=== PATIENT | male | born 1955 | race Caucasian/White ===

== ENCOUNTER → 2024-07-19 07:45 | Outpatient (REF) | payer MEDICARE, SELFPAY | LOC: DHVS 07:45 | PROVIDERS: ATTENDING PHYSICIAN Surgery Vascular Surgery; FAMILY PHYSICIAN Nurse Practitioner Family; REFERRING PHYSICIAN Internal Medicine Cardiovascular Disease | DX: I71.43 Infrarenal abdominal aortic aneurysm, without rupture (principal) | CPT/HCPCS: 76770 ==

== ENCOUNTER 2025-05-27 11:42 | Inpatient (IN) | payer MEDICARE, SELFPAY ==
[2025-05-27] VITALS (16 sets, daily range): BP systolic 89–137; BP diastolic 43–80; BMI 37.7; BMI 38.5
--- NOTE | 2025-05-27 09:02 | ED.GENMED ---
History of Present Illness
General
Chief Complaint: Abdominal Symptoms
Time Seen by Provider: 05/27/25 09:02
History of Present Illness
History of Present Illness:
FOCUSED PAST MEDICAL HISTORY
- COPD, A-fib, high blood pressure, diverticular disease, IDDM
Note:
CHIEF COMPLAINT(S)
The patient presents with recurrent episodes of nausea, diarrhea and generalized weakness.
HISTORY OF PRESENT ILLNESS
The patient is a 69-year-old male who presented with a history of violent, watery diarrhea starting Wednesday night. He reported transient improvement on Wednesday, but symptoms recurred on night, prompting him to visit an ER in [place] on
Wednesday. A computed tomography scan of the abdomen and pelvis with IV contrast was performed, which revealed no acute findings but noted gallstones, diverticulosis, a gastric lipoma, and an enlarged prostate. No lymphadenopathy was observed.
Yesterday, the patient experienced diarrhea every hour and a half and reports feeling dehydrated and weak. He noted a lack of urination yesterday and has a history of low potassium, commonly addressed with potassium supplementation during previous
hospitalizations. The patient describes abdominal tenderness in the left quadrant and reports a burning sensation on the right side extending to his throat. Additionally, he is experiencing nausea. He also reported a burning sensation in the right
side of his torso.
PAST MEDICAL AND SURIGICAL HISTORY
Documented diverticulosis and [id number] bypass graft surgery.
ADDITIONAL HISTORY OBTAINED FROM SOURCES OTHER THAN THE PATIENT
According to prior ER records, a computed tomography scan of the abdomen and pelvis with IV contrast showed no acute issues, but chronic conditions like cholelithiasis and diverticulosis were noted. External records indicate a history of being
prescribed potassium due to loss associated with diarrhea and previous hospitalizations.
EXTERNAL RECORDS REVIEWED
The CT scan from [place] ER showed no acute findings but mentioned gallstones, diverticulosis, and an enlarged prostate. Prior laboratory tests included a white blood cell count of 6.4, hemoglobin at 11.9, and potassium level at 3.3, indicating
mild dehydration.
CHRONIC MEDICAL CONDITIONS SIGNIFICANTLY AFFECTING CARE
The patient has a history of diverticulosis and previous [id number] bypass graft.
SOCIAL DETERMINANTS AFFECTING HEALTH
No social determinants affecting health were specifically discussed in detail during the case history.
PHYSICAL EXAM
General: Alert, no acute distress. Appears somewhat weak and debilitated.
Skin: Warm, dry.
Head: Normocephalic, atraumatic.
Neck: Supple, trachea midline.
Eye Ears, Nose, Mouth, and Throat: Oral mucosa somewhat dry.
Cardiovascular: Normal peripheral perfusion, no edema.
Respiratory: Respirations are non-labored.
Gastrointestinal: Some very minimal left-sided abdominal tenderness
Back: Normal range of motion, normal alignment.
Musculoskeletal: Normal range of motion, normal strength.
Neurological: Alert and oriented to person, place, time, and situation, no focal neurological deficit observed.
Psychiatric: Cooperative, appropriate mood & affect.
PLAN
- Administer intravenous fluids to address dehydration.
- Repeat blood work to check current potassium levels and renal function.
- Provide potassium supplementation if levels remain low.
- Administer Pepcid (histamine kira) to manage burning sensation and nausea.
- Monitor and reassess after interventions to determine if further imaging or interventions are necessary.
DIFFERENTIAL DIAGNOSIS
The Differential Diagnosis includes, in no particular order and is not limited to:
1. Infectious gastroenteritis
2. Clostridium difficile infection
3. Diverticulitis
4. Irritable bowel syndrome
5. Medication-induced diarrhea
6. Inflammatory bowel disease
7. Hyperthyroidism
8. Pancreatic insufficiency
9. Lactose intolerance
10. Functional dyspepsia
EKG
- A-fib 82, left axis deviation, nonspecific ST abnormality
LABS
- White count 10.9, hemoglobin normal, potassium 3.1, bicarb 12, creatinine 2.4, magnesium normal
UPDATE
-SUMMARY OF ENCOUNTER
The patient, a 69-year-old male, presented with recurrent violent watery diarrhea and generalized weakness. He was previously seen at the [place] ER, where a CT scan noted chronic conditions without acute findings. On evaluation today, notable lab
results showed a further decrease in potassium to 3.1, a lower bicarbonate level, and worsened kidney function with a creatinine level of 2.4, indicating acute kidney injury likely due to severe dehydration. The plan includes admission for
stabilization with intravenous fluids and potassium supplementation. A stool sample was requested to aid in diagnosis, but not yet obtained.
DISPOSITION
Admit.
ASSESSMENT
Acute kidney injury due to dehydration, with associated hypokalemia and mild leukocytosis, likely related to recurrent diarrhea episodes.
EMERGENCY TREATMENTS ADMINISTERED
Intravenous fluids for dehydration, intravenous potassium for hypokalemia.
MANAGEMENT OF THE PATIENTS CARE WAS DISCUSSED WITH
Discussion anticipated with the internal medicine doctor for further management.
PLAN
Admission to the hospital for management of acute kidney injury, dehydration, and hypokalemia. Intravenous fluids and potassium supplementation to be continued. Await internal medicine evaluation for further management.
INDEPENDENT REVIEW OF LABS AND INTERPRETATION OF TESTS
- My independent review of BMP shows decreased potassium at 3.1 and impaired kidney function with creatinine at 2.4, indicative of acute kidney injury and dehydration.
- My independent review of CBC shows an increase in white blood cell count to the tens, indicating mild leukocytosis.
MEDICAL DECISION MAKING
- Number and Complexity of Problems Addressed: Chronic conditions affecting care include diverticulosis and prior yitoq-ge-scyig bypass graft surgery. Differential diagnosis includes infectious gastroenteritis, Clostridium difficile infection, and
other causes of diarrhea and abdominal symptoms.
- Data:
Category 1:
- Reviewed non-emergency department records, including prior CT findings from [facility].
Category 2:
- Clinical information was obtained from external sources, including previous ER records.
-Risk:
- Decisions to admit due to significant dehydration and associated acute kidney injury.
- Prescription medication was administered in the form of IV potassium.
DIAGNOSIS
- Acute Kidney Injury (CINDI) due to Dehydration (ICD-10: N17.9)
- Hypokalemia (ICD-10: E87.6)
Past History
Past History
ED Past Medical History: Arrthythmia (Atrial fibrillation), HTN, Hypercholesterolemia, IDDM and Other (Abdominal aortic aneurysm)
ED Past Surgical History: Other (Cataracts)
Social History
Tobacco: Former smoker
Alcohol: None
Drug: None
Phy Exam
Physical Exam
Physical Exam:
See HPI
Course
Orders/Labs/Results
Orders:
Orders
05/27/25 09:03
STOOL [C difficile Antigen & Toxins] Urgent
NOÉ Source: Feces/Stool
Specimen Description:
Stool Culture Urgent
NOÉ Source: Feces/Stool
Specimen Description:
0.9% Sodium Chloride 1000 ml [Nss] 1,000 ml IV BOLUS
05/27/25 09:09
Complete Blood Count/With Diff Urgent
Comprehensive Metabolic Panel Urgent
Lipase Urgent
Magnesium Urgent
05/27/25 09:10
Famotidine [Pepcid] 20 mg IV NOW STA
Ondansetron Injectable [Zofran] 4 mg IV NOW STA
05/27/25 10:22
0.9% Sodium Chloride 1000 ml [Nss] 1,000 ml IV BOLUS
05/27/25 10:31
Electrocardiogram (*1) Urgent
Reason for Study: Other
Other Reason for Exam: hypokalemia
EKG- Treatment ONCE
05/27/25 10:53
Potassium Chloride [KCl] 40 meq 0.9% Sodium Chloride 250 ml [Nss] 250 ml IV NOW
05/27/25 11:10
Admit/Transfer Patient As Directed
Co-Sign Provider:
Level of Care: Inpatient admission
Assign to:: Telemetry
Physician / Group: jimi iglesias
Diagnosis: Acute renal failure
Patient Condition: Fair
Reason for Telemetry: Arrhythmia
Date to Stop Telemetry: 05/30/25
Time to Stop Telemetry: 11:00
Reason for Hospitalization: Acute renal failure.
Hypokalemia.
Acute metabolic acidosis
Expected length of stay greater than two midnights?: Yes
ELOS- Estimated Length of Stay in days: 2
I certify the patient meets the requirements for IP care: Yes
PRN Pain Medication Management As Directed
May give lesser potent ordered pain med per pt: Yes
preference::
Protocol:: Medication orders for pain may be administered in a
manner that supports deferring to patient preference
when the pt is:
- Requesting an ordered lesser potent pain medication.
Least to most potent pain medications are defined
as: acetaminophen < NSAID < tramadol < opioids
(morphine, oxycodone, hydromorphone).
- Requesting a lesser dose of the same medication IF
ORDERED.
- Requesting a less intrusive route of administration
if both routes are prescribed by the provider (PO <
IV).
05/27/25 11:12
Code Status As Directed
Resuscitation Status: Full Code
05/30/25 11:00
DC Protocol for Telemetry ONCE
Abnormal Lab Results
05/27/25
09:09
WBC 10.9 H 10^3/uL
(4.8-10.8)
MCHC 32.3 L g/dL
(33.0-37.0)
RDW 16.3 H %
(11.5-14.5)
Abs Immat Gran (auto) 0.1 H 10^3/uL
(0-0.05)
Absolute Neuts (auto) 7.5 H 10^3/uL
(1.4-6.5)
Absolute Monos (auto) 1.5 H 10^3/uL
(0.1-0.6)
Immature Gran % 0.9 H %
(0-0.5)
Lymphocytes % 13.6 L %
(20.5-51.1)
Monocytes % 14.0 H %
(1.7-9.3)
Potassium 3.1 L mmol/L
(3.5-5.1)
Chloride 109 H mmol/L
(98-107)
Carbon Dioxide 12 L* mmol/L
(22-30)
BUN 38 H mg/dl
(9-20)
Creatinine 2.4 H mg/dL
(0.7-1.3)
Glucose 163 H mg/dl
(70-99)
Total Bilirubin 1.4 H mg/dl
(0.2-1.3)
AST 16 L U/L
(17-59)
05/27/25 09:09
05/27/25 09:09
Vital Signs
Initial and Last Documented VS:
Initial Vital Signs
Temp Pulse Resp BP Pulse Ox
36.8 C 74 16 137/80 98
05/27/25 08:35 05/27/25 08:35 05/27/25 08:35 05/27/25 08:35 05/27/25 08:35
Last Documented Vital Signs
Temp Pulse Resp BP Pulse Ox
36.8 C 96 19 104/51 97
05/27/25 08:35 05/27/25 13:00 05/27/25 13:00 05/27/25 13:00 05/27/25 13:00
*Pulse Oximetry
SaO2: 98
Oxygen Mode of Delivery: Room air
Patient hypoxic: no
*Critical Care Note
Total Time (30-74mins, 75-104mins- exclusive of procedures): Not Applicable
ED Attending Note
-
Portions of this chart may have been created with voice recognition software.� Occasional wrong word or��sound alike� substitutions may have occurred due to the inherent limitations of voice recognition software.
Discharge Plan
Departure
Patient Disposition: Admit
Date of Disposition: 05/27/25
Time of Disposition: 10:56
Presentation/result/management discussed w/ accepting MD/DO: Hospitalist
Discharge Problem:
CINDI (acute kidney injury)
Interventions
Interventions:
*Risk Screen - Suicide Last Done: 05/27/25 08:35
*General Assessment Last Done: 05/27/25 09:22
*Neglect/Abuse Screening Last Done: 05/27/25 08:35
*ED- Fall Risk Assessment Last Done: 05/27/25 09:22
CO-Wnukcb-Terfttmcad Assessment Last Done: 05/27/25 09:22
[2025-05-27] MEDS: NSS 1000 IV ×2 (09:17→11:11)
[2025-05-27] MEDS: ZOFRAN 4 MG IV (09:20)
[2025-05-27] MEDS: PEPCID 20 MG IV (09:20)
[2025-05-27 09:25] LABS: Hematocrit 40.2 % (39.0-52.0); Hemoglobin 13.0 g/dL (13.0-18.0); Mean Corp Hgb Conc. 32.3 g/dL (33.0-37.0); Mean Corpuscular Volume 84.6 fL (80.0-94.0); Nucleated Red Blood Cells % 0 % (-); Platelet Count 292 10^3/uL (130-400); Red Cell Dist. Width 16.3 % (11.5-14.5)
[2025-05-27 09:57] LABS: ALT (SGPT) 15 U/L (0-50); AST (SGOT) 16 U/L (17-59); Albumin 4.1 g/dl (3.5-5.0); Alkaline Phosphatase 95 U/L (38-126); Blood Urea Nitrogen 38 mg/dl (9-20); Calcium 9.0 mg/dl (8.4-10.2); Carbon Dioxide 12 mmol/L (22-30); Chloride 109 mmol/L (98-107); Estimated Creatinine Clearance 41 ml/min; Glucose 163 mg/dl (70-99); Lipase 62 U/L (23-300); Magnesium 2.0 mg/dl (1.6-2.3); Potassium 3.1 mmol/L (3.5-5.1); Sodium 138 mmol/L (135-145); Total Protein 7.5 g/dl (6.3-8.2); eGFR 28.14
--- NOTE | 2025-05-27 10:53 | HPS.HSE ---
Family Physician
-
Family Physician: Nicole Plata
Chief Complaint
-
Nausea, vomiting
History of Present Illness
Patient is a pleasant 69 years old with history of insulin-dependent diabetes mellitus, hypertension, atrial fibrillation, hyperlipidemia, who came to the ER with nausea, vomiting, diarrhea since Wednesday night, improved on Wednesday and went to ER
at [place] on Wednesday where CT scan done with IV contrast shows no acute finding but noted gallstone, diverticulosis, gastric lipoma and enlarged prostate.
Patient was having diarrhea every hour yesterday and feels dehydrated, came to the ER at the outside hospital where found to have acute renal failure, hyperkalemia, acute metabolic acidosis.
Patient with history of permanent A-fib, he stopped taking Lasix and hydrochlorothiazide when he started having symptoms on Wednesday but rest of medication he was taking it as prescribed.
Patient will be admitted under hospitalist service.
Medical History
Past Medical History
Past Medical History: Reports COPD, HTN, IDDM and Other
Additional Past Medical History:
1. Atrial fibrillation, on Xarelto.
2. Hypertension.
3. Hypercholesterolemia.
4. Insulin-dependent diabetes.
5. Known abdominal aortic aneurysm.
6. Status post cataract surgery.
7.obesity with a BMI of 37.6
Past Surgical History: Reports Other
Additional Past Surgical History:
Other (Cataracts, wisdom teeth)
Social History
Tobacco: Former Smoker
Alcohol: None
Drug: None
Family History
Family History: Not pertinent
Allergies / Home Medications
Allergies reflects when Allergies were last updated in [facility].
Home Medications with original date entered in [facility]
Allergy/Medication List:
Allergies
Allergy/AdvReac Type Severity Reaction Status Date / Time
No Known Allergies Allergy Verified 05/27/25 08:38
Home Medications (not updated)-patient has a list of his updated meds
carvedilol phosphate 80 mg capsule,ext.[id number] multiphase (Coreg CR) 80 mg PO DAILY Blood pressure 04/04/22
cyanocobalamin (vitamin B-12) 1,000 mcg tablet 1,000 mcg PO DAILY Supplement 04/04/22
furosemide 20 mg tablet 20 mg PO DAILY Fluid retention/Swelling 04/04/22
insulin glargine 100 unit/mL (3 mL) subcutaneous pen (Lantus Solostar U-100 Insulin) 16 unit SC BID Diabetes 04/04/22
olmesartan 40 mg tablet 40 mg PO DAILY Blood pressure 04/04/22
rivaroxaban 20 mg tablet (Xarelto) 20 mg PO QPM Blood clot prevention/tx 04/04/22
Held on 06/13/22. Instructions: Resume on 06/26/22. Resume on 06/26
tiotropium bromide 2.5 mcg/actuation mist for inhalation (Spiriva Respimat) 2 inh inhalation DAILY Lung/breathing issues 04/04/22
amlodipine 10 mg-atorvastatin 80 mg tablet (Caduet) 1 tab PO QPM Blood pressure 06/02/22
dulaglutide 3 mg/0.5 mL subcutaneous pen injector (Trulicity) 3 mg SC QWEEK Diabetes 06/12/22
metformin 500 mg tablet,extended release 24 hr 500 mg PO BID Diabetes 06/12/22
aspirin 81 mg capsule 81 mg PO DAILY #20 caps 06/13/22
Review of Systems
-
A 12 point ROS was completed and negative except as noted: Yes
Constitutional: Reports Fatigue; Denies Fever, Weight Gain, Weight Loss or Sleep Disturbance
EENT: Denies Tearing, Sore Throat, Mouth Pain, Mouth Swelling or Runny Nose
Respiratory: Denies Cough, Hemoptysis or Trouble Breathing
Cardiac: Denies Chest Pain, Diaphoresis, Palpitations or Syncope
Abdomen/GI: Reports Abdominal Pain, Nausea, Vomiting and Diarrhea; Denies Constipated, Bloody Stools or Black Stools
: Denies Dysuria, Frequency, Flank Pain, Incontinence, Difficulty Voiding, Urgency, Bleeding or Dark Urine
Musculoskeletal: Denies Joint Pain, Joint Swelling, Muscle Pain, Muscle Stiffness or Edema
Skin: Denies Itching or Rash
Neurological: Denies Dizzy, Headache, Weakness or Numbness
Endocrine: Denies Polyuria, Polydipsia or Temp Intolerance
Hematologic/Lymphatic: Denies Bleeding, Swollen Glands or Bruising
Psych: Reports Calm; Denies Depression, Anxiety or Panic Disorder
Physical Exam
Vital Signs
Vital Signs
Temp Pulse Resp BP Pulse Ox
98.2 F 85 21 99/49 92
05/27/25 08:35 05/27/25 10:45 05/27/25 10:45 05/27/25 10:30 05/27/25 10:45
Physical Exam
General: Well Developed, Well Nourished, No Apparent Distress, Comfortable and Good Appetite; No Pain, Chills or Sweats
HEENT: NormoCephalic, Moist mucous membranes, Atraumatic, Good Dentition, PERRLA, Nose Appears Normal and Ears Appear Normal
Respiratory: Clear
Cardiac: S1/S2 and Irregular Rhythm
Breast: Deferred by me
GI: Soft, Non Tender, Non Distended and Normal Bowel Sounds
Genito-urinary: Deferred by me
Musculoskeletal: No Clubbing, No Cyanosis and No Edema
Skin: Warm; No Rash, Jaundice, Ulcers, Lesions or Decubitus Ulcers
Neuro: Awake, Alert, Oriented, AO x 3, No Motor Deficits, Nonfocal/grossly intact and Cranial Nerves Intact
Hematologic/Lymphatic: No Lymphadenopathy
Psych: Calm
Laboratory Results
-
05/27/25 09:09
05/27/25 09:09
Laboratory Results
Total Bilirubin 1.4 mg/dl (0.2-1.3) H 05/27/25 09:09
AST 16 U/L (17-59) L 05/27/25 09:09
ALT 15 U/L (0-50) 10/05/25 09:09
Alkaline Phosphatase 95 U/L (38-126) 05/27/25 09:09
Lipase 62 U/L (23-300) 05/27/25 09:09
Data Reviewed
-
Diagnostic Radiology: Report Reviewed by me
CT Scan: Report Reviewed by me
Medical Tests (Nuc Med, Echo, EKG etc): Report Reviewed by me
Lab Data: Labs Reviewed by me
Old Records: Reviewed
Impression/Plan
-
Impression:
Patient is a pleasant 69 years old with history of insulin-dependent diabetes mellitus, hypertension, atrial fibrillation, hyperlipidemia, who came to the ER with nausea, vomiting, diarrhea since Wednesday night, improved on Wednesday and went to ER
at [place] on Wednesday where CT scan done with IV contrast shows no acute finding but noted gallstone, diverticulosis, gastric lipoma and enlarged prostate.
Patient was having diarrhea every hour yesterday and feels dehydrated, came to the ER at the outside hospital where found to have acute renal failure, hyperkalemia, acute metabolic acidosis.
Patient with history of permanent A-fib, he stopped taking Lasix and hydrochlorothiazide when he started having symptoms on Wednesday but rest of medication he was taking it as prescribed.
Patient will be admitted under hospitalist service.
Assessment/plan:
Acute kidney injury.
Acute metabolic acidosis
Possible prerenal azotemia secondary to volume loss vs contrast induced nephropathy
Hold nephrotoxins.
Hold blood pressure medications for now.
Hold metformin.
Patient also received contrast at [place] ER on Wednesday
Monitor BMP.
Start bicarb drip.
Consider nephrology consult if no improvement.
Hypokalemia.
Replace and continue to monitor
Leucocytosis:
-Mild,
-Likely reactive
Permanent A-fib.
Continue Xarelto.
Change dose to 15 mg based on kidney function for now
History�of�insulin-dependent diabetes�mellitus
Continue�Lantus.
Hold metformin
Insulin�sliding�scale
Diabetic�diet
Hemoglobin A1c
History�of�hypertension
Patient is hypertensive in the ER, hold blood pressure medications for now and resume gradually
History of hyperlipidemia
Patient on amlodipine/atorvastatin at home.
Resume statin for now
CODE STATUS:�Full�code
DVT�prophylaxis:�Xarelto
Diet:�DM diet
Family�communication: Discussed with at bedside
Disposition: Admit to inpatient
Total�time�spent�on�today�s�encounter�was�75�minutes�which�included�time�spent�in�counseling�the�patient/family�regarding�diagnosis�and�treatment�plan�as�listed�above,�goals�of�care,�and�symptom�management.�Case�was�discussed�with�nursing�staff,�spec
ialists,�and�care�coordinators/case�management.�All�labs�and�imaging�personally�reviewed�by�me.�Remainder�the�time�spent�in�detailed�review�of�previous�records,�lab�data,�imaging,�and�other�medical�provider�documentation.
[2025-05-27] MEDS: KCL 270 MEQ IV (11:10)
--- NOTE | 2025-05-27 12:05 | EDCM ---
CM reviewed chart and met with pt bedside in ED. Lives in third floor condo with his friend Arlette, 24 steps to enter.
Independent in ADLs, personal care and ambulation at baseline. Still driving. Uses cane due to back issues. Also has CPAP machine.
Confirms prescription coverage.
No hx VN or SNF
PCP: Nicole Plata
Pharmacy: [facility]
CM will continue to follow for all discharge planning needs
[2025-05-27 21:41] LABS: Blood Urea Nitrogen 41 mg/dl (9-20); Calcium 8.0 mg/dl (8.4-10.2); Carbon Dioxide 14 mmol/L (22-30); Chloride 113 mmol/L (98-107); Estimated Creatinine Clearance 58 ml/min; Glucose 108 mg/dl (70-99); Potassium 3.0 mmol/L (3.5-5.1); Sodium 140 mmol/L (135-145); eGFR 42.57
[2025-05-27] MEDS: SPIRIVA RESPIMAT 2.5 MCG 2 PUFF INH (22:00)
--- NOTE | 2025-05-27 22:00 | PTCARENOTE ---
Admission questionnaire and full head to toe assessment completed. Night time meds administered. Patient is comfortable, pleasant, and oriented to unit.
[2025-05-27 22:19] LABS: Glucose - Point of Care 150 mg/dl (70-99)
[2025-05-27] MEDS: XARELTO 20 MG PO (22:37)
[2025-05-27] MEDS: LIPITOR 20 MG PO (22:37)
[2025-05-27] MEDS: SODIUM BICARBONATE 1150 MEQ IV (22:37)
[2025-05-27] MEDS: NOVOLOG FLEXPEN-LOW RESISTANCE 300 UNITS SC (22:45)
[2025-05-28 01:15] LABS: Urine Character Clear (Clear)
[2025-05-28 01:25] LABS: Urine Squamous Cell >30 /LPF (Few)
[2025-05-28 03:02] VITALS: BP 114/64
[2025-05-28 07:00] VITALS: BP 115/56
[2025-05-28 07:19] LABS: Glucose - Point of Care 122 mg/dl (70-99)
[2025-05-28] MEDS: VITAMIN B-12 1000 MCG PO (07:43)
[2025-05-28] MEDS: NOVOLOG FLEXPEN-LOW RESISTANCE SC ×2 (07:43→12:43)
[2025-05-28] MEDS: SPIRIVA RESPIMAT 2.5 MCG 2 PUFF INH (08:24)
[2025-05-28 08:30] LABS: Hematocrit 37.3 % (39.0-52.0); Hemoglobin 12.3 g/dL (13.0-18.0); Mean Corp Hgb Conc. 33.0 g/dL (33.0-37.0); Mean Corpuscular Volume 85.9 fL (80.0-94.0); Platelet Count 232 10^3/uL (130-400); Red Cell Dist. Width 16.2 % (11.5-14.5)
[2025-05-28 08:47] LABS: Blood Urea Nitrogen 37 mg/dl (9-20); Calcium 8.1 mg/dl (8.4-10.2); Carbon Dioxide 17 mmol/L (22-30); Chloride 109 mmol/L (98-107); Estimated Creatinine Clearance 81 ml/min; Glucose 112 mg/dl (70-99); Magnesium 1.9 mg/dl (1.6-2.3); Potassium 3.0 mmol/L (3.5-5.1); Sodium 139 mmol/L (135-145); eGFR > 60.00
[2025-05-28] MEDS: LANTUS 0.16 UNITS SC ×2 (09:37→23:17)
[2025-05-28] MEDS: KCL 270 MEQ IV (10:30)
[2025-05-28 11:00] VITALS: BP 118/51
[2025-05-28 11:12] LABS: Glycohemoglobin (HgbA1c) 6.5 % (4.0-5.6)
[2025-05-28 11:40] LABS: Glucose - Point of Care 134 mg/dl (70-99)
--- NOTE | 2025-05-28 14:24 | CM ---
Chart reviewed and patient to return to home when stable, plan home when stable.
Plan Home when stable.
--- NOTE | 2025-05-28 14:57 | W.PN.HOSP.TC ---
Today's Communication/Plan
-
Continue IV fluid.
Pending stool study
Bladder scan, straight cath if more than 400 cc
Assessment / Plan
Assessment / Plan
Impression:
Patient is a pleasant 69 years old with history of insulin-dependent diabetes mellitus, hypertension, atrial fibrillation, hyperlipidemia, who came to the ER with nausea, vomiting, diarrhea since Wednesday night, improved on Wednesday and went to ER
at [facility] on Wednesday where CT scan done with IV contrast shows no acute finding but noted gallstone, diverticulosis, gastric lipoma and enlarged prostate.
Patient was having diarrhea every hour yesterday and feels dehydrated, came to the ER at the outside hospital where found to have acute renal failure, hyperkalemia, acute metabolic acidosis.
Patient with history of permanent A-fib, he stopped taking Lasix and hydrochlorothiazide when he started having symptoms on Wednesday but rest of medication he was taking it as prescribed.
Patient will be admitted under hospitalist service.
Started on bicarb drip, potassium replaced.
Kidney function and acidosis improved but still with hyperkalemia.
Persistent diarrhea.
Stool studies pending.
Assessment/plan:
Acute kidney injury.
Acute metabolic acidosis
Possible prerenal azotemia secondary to volume loss vs contrast induced nephropathy
Hold nephrotoxins.
Hold blood pressure medications for now.
Hold metformin.
Patient also received contrast at [facility] on Wednesday
Monitor BMP.
Start bicarb drip.
05/28
Acute renal failure and leukocytosis improved
Continue bicarb drip
Acute gastroenteritis.
Acute diarrheal illness.
Patient did eat at dinner before symptoms started.
Stool studies pending
Hypokalemia.
Secondary to GI loss
Replace and continue to monitor
Leucocytosis:
-Mild,
-Likely reactive
Permanent A-fib.
Continue Xarelto.
Change dose to 15 mg based on kidney function for now
History�of�insulin-dependent diabetes�mellitus
Continue�Lantus.
Hold metformin
Insulin�sliding�scale
Diabetic�diet
Hemoglobin A1c
History�of�hypertension
Patient is hypertensive in the ER, hold blood pressure medications for now and resume gradually
History of hyperlipidemia
Patient on amlodipine/atorvastatin at home.
Resume statin for now
Urinary retention
Bladder scan/straight cath protocol.
May consider [facility] and urology consult if persistent
CODE STATUS:�Full�code
DVT�prophylaxis:�Xarelto
Diet:�DM diet
Family�communication: Discussed with at bedside
Disposition: Continue IV fluid.
Pending stool study
Total time spent on today's encounter was 50 minutes which included time spent in counseling the patient/family regarding diagnosis and treatment plan as listed above, goals of care, and symptom management. Case was discussed with nursing staff,
specialists, and care coordinators/case management. All labs and imaging personally reviewed by me. Remainder the time spent in detailed review of previous records, lab data, imaging, and other medical provider documentation.
Anticipated Discharge: 24 - 48 hours
Subjective/Interval History
-
Date of Service: May 28, 2025
Patient seen and examined at bedside, feeling tired, denies any chest pain or shortness of breath, continue to have diarrhea.
Objective Data
-
Labs:
Laboratory Results
05/28/25
06:41
WBC 7.7
Hgb 12.3 L
Hct 37.3 L
Plt Count 232 D
Sodium 139
Potassium 3.0 L
Chloride 109 H
Carbon Dioxide 17 L
BUN 37 H
Creatinine 1.2
Glucose 112 H
Calcium 8.1 L
Vital Signs:
Vital Signs
Temp Pulse Resp BP Pulse Ox
97.7 F 98 16 118/51 96
05/28/25 11:00 05/28/25 11:00 05/28/25 11:00 05/28/25 11:00 05/28/25 11:00
I&O
05/27/25 05/28/25 05/29/25
06:59 06:59 06:59
Intake Total 1560 / 1560
Output Total 700 / 700
Balance 1560 / 1560 -700 / -700
Physical Exam
-
General: Well Developed, Well Nourished, No Apparent Distress and Comfortable
HEENT: Normocephalic, Atraumatic, Moist Mucous Membranes, No Ptosis, PERRLA and Nose Appears Normal
Respiratory: Clear to Auscultation and Non Labored Respirations
Cardiac: Regular Rhythm and S1/S2
Breast: Deferred by me
GI: Soft, Nontender, Nondistended and Normal Bowel Sounds
Genito-urinary: No Costovertebral Tender
Musculoskeletal: No Clubbing, No Cyanosis and No Edema
Skin: Warm
Neuro: Awake, Alert, Oriented, AO x 3 and No Motor Deficits
Psych: Calm
Data Reviewed
-
Diagnostic Radiology: Image personally visualized and interpreted and Report Reviewed by me
CT Scan: Image personally visualized and interpreted and Report Reviewed by me
Ultrasound: Image personally visualized and interpreted and Report Reviewed by me
MRI: Image personally visualized and interpreted and Report Reviewed by me
Medical Tests (Nuc Med, Echo etc): Image personally visualized and interpreted and Report Reviewed by me
Labs: Labs Reviewed by me
Old Records: Reviewed
[2025-05-28 15:00] VITALS: BP 111/63
[2025-05-28] MEDS: SODIUM BICARBONATE 1150 MEQ IV (15:59)
[2025-05-28 16:52] LABS: Glucose - Point of Care 151 mg/dl (70-99)
[2025-05-28] MEDS: LIPITOR 20 MG PO (17:28)
[2025-05-28] MEDS: XARELTO 20 MG PO (17:28)
[2025-05-28] MEDS: NOVOLOG FLEXPEN-LOW RESISTANCE 1 UNITS SC (17:29)
[2025-05-28 19:00] VITALS: BP 126/58
[2025-05-28] MEDS: ZOFRAN 4 MG IV (21:23)
[2025-05-28 21:28] LABS: Glucose - Point of Care 171 mg/dl (70-99)
[2025-05-28 23:00] VITALS: BP 123/51
[2025-05-29 03:00] VITALS: BP 120/54
[2025-05-29] MEDS: SODIUM BICARBONATE 1150 MEQ IV (05:36)
[2025-05-29 07:46] VITALS: BP 139/70
[2025-05-29 08:01] LABS: Glucose - Point of Care 163 mg/dl (70-99)
[2025-05-29 08:15] LABS: Hematocrit 36.2 % (39.0-52.0); Hemoglobin 11.8 g/dL (13.0-18.0); Mean Corp Hgb Conc. 32.6 g/dL (33.0-37.0); Mean Corpuscular Volume 85.2 fL (80.0-94.0); Platelet Count 209 10^3/uL (130-400); Red Cell Dist. Width 15.9 % (11.5-14.5)
[2025-05-29] MEDS: SPIRIVA RESPIMAT 2.5 MCG 2 PUFF INH (08:21)
--- NOTE | 2025-05-29 08:38 | W.PN.HOSP.TC ---
Addendum entered and electronically signed by Teodoro Solomon MD 05/29/25 17:12:
Also updated daughter over the phone
Addendum entered and electronically signed by Teodoro Solomon MD 05/29/25 17:09:
Possible UTI. Urine culture contaminant but will empirically treat for 3 days.
He peed like 10ml and is retaining about 250 and he required straight cath twice yesterday and once today so for now we will place a Hill catheter and will arrange for outpatient urology eval (discussed with Dr. Warren).
Original Note:
Today's Communication/Plan
-
Replete potassium aggressively
Assessment / Plan
Assessment / Plan
Physical exam:
General: Well Developed, Well Nourished and No Apparent Distress
HEENT: Normocephalic, Atraumatic and Moist Mucous Membranes
Respiratory: Clear to Auscultation; Negative Wheezes, Rales or Rhonchi
Cardiac: Regular Rhythm and S1/S2
GI: Soft, Nontender and Nondistended
Musculoskeletal: No Clubbing, No Cyanosis and No Edema
Neuro: Awake, Alert and Oriented, no neurological deficits
Psych: Calm
Impression:
Patient is a pleasant 69 years old with history of insulin-dependent diabetes mellitus, hypertension, atrial fibrillation, hyperlipidemia, who came to the ER with nausea, vomiting, diarrhea since Wednesday night, improved on Wednesday and went to ER
at [place] on Wednesday where CT scan done with IV contrast shows no acute finding but noted gallstone, diverticulosis, gastric lipoma and enlarged prostate.
Patient was having diarrhea every hour yesterday and feels dehydrated, came to the ER at the outside hospital where found to have acute renal failure, hyperkalemia, acute metabolic acidosis.
Patient with history of permanent A-fib, he stopped taking Lasix and hydrochlorothiazide when he started having symptoms on Wednesday but rest of medication he was taking it as prescribed.
Patient will be admitted under hospitalist service.
Started on bicarb drip, potassium replaced.
Kidney function and acidosis improved but still with hypokalemia.
Persistent diarrhea.
Stool studies pending.
Assessment/plan:
Acute kidney injury.
Acute metabolic acidosis
Possible prerenal azotemia secondary to volume loss vs contrast induced nephropathy
Hold nephrotoxins.
Hold blood pressure medications for now.
Hold metformin.
Patient also received contrast at [facility] on Wednesday
Monitor BMP.
Start bicarb drip.
05/28
Acute renal failure and leukocytosis improved
Continue bicarb drip
05/29
Stop bicarb drip
Creatinine and bicarb stabilized
Gentle hydration with potassium and stop later today if no more diarrhea
PT eval for discharge disposition
Acute gastroenteritis.
Acute diarrheal illness.
Patient did eat at dinner before symptoms started.
Stool studies pending but mostly negative for infection
Hypokalemia.
Secondary to GI loss
Replace and continue to monitor
05/29:
Replete IV and orally today
Recheck magnesium
Leucocytosis:
-Mild,
-Likely reactive
Permanent A-fib.
Continue Xarelto.
Change dose back to 20 mg based on kidney function
History�of�insulin-dependent diabetes�mellitus
Continue�Lantus.
Hold metformin
Insulin�sliding�scale
Diabetic�diet
Hemoglobin A1c
History�of�hypertension
Patient is hypertensive in the ER, hold blood pressure medications for now and resume gradually
History of hyperlipidemia
Patient on amlodipine/atorvastatin at home.
Resume statin for now
Urinary retention
Bladder scan/straight cath protocol.
May consider [facility] and urology consult as outpatient (reached out to urology to let them know-Dr. Warren)
CODE STATUS:�Full�code
DVT�prophylaxis:�Xarelto
Diet:�DM diet
Family�communication: Discussed with prior by Dr. Antunez
Disposition: Continue IV fluid.
Pending stool study
Time spent 35 minutes
Anticipated Discharge: Within 24 hours
Subjective/Interval History
-
Date of Service: May 29, 2025
Patient denies diarrhea and last soft bowel movement was earlier this morning around 3 AM. No nausea or vomiting. Afebrile
Objective Data
-
Labs:
Laboratory Results
05/29/25
07:27
WBC 6.3
Hgb 11.8 L
Hct 36.2 L
Plt Count 209
Sodium Pending
Potassium Pending
Chloride Pending
Carbon Dioxide Pending
BUN Pending
Creatinine Pending
Glucose Pending
Calcium Pending
Vital Signs:
Vital Signs
Temp Pulse Resp BP Pulse Ox
97.7 F 82 14 139/70 96
05/29/25 07:46 05/29/25 08:25 05/29/25 08:25 05/29/25 07:46 05/29/25 08:25
I&O
05/28/25 05/29/25 05/30/25
06:59 06:59 06:59
Intake Total 1560 / 1560 2550 / 2550
Output Total 1350 / 1350
Balance 1560 / 1560 1200 / 1200
[2025-05-29] MEDS: LANTUS 0.16 UNITS SC ×2 (08:43→23:10)
[2025-05-29] MEDS: NOVOLOG FLEXPEN-LOW RESISTANCE 1 UNITS SC ×3 (08:45→16:54)
[2025-05-29] MEDS: VITAMIN B-12 1000 MCG PO (08:46)
[2025-05-29 08:52] LABS: Blood Urea Nitrogen 18 mg/dl (9-20); Calcium 8.0 mg/dl (8.4-10.2); Carbon Dioxide 28 mmol/L (22-30); Chloride 105 mmol/L (98-107); Estimated Creatinine Clearance > 125 ml/min; Glucose 136 mg/dl (70-99); Magnesium 1.9 mg/dl (1.6-2.3); Potassium 2.8 mmol/L (3.5-5.1); Sodium 139 mmol/L (135-145); eGFR > 60.00
[2025-05-29 11:24] VITALS: BP 124/61
[2025-05-29 11:26] LABS: Glucose - Point of Care 197 mg/dl (70-99)
[2025-05-29] MEDS: KCL 40 MEQ PO ×2 (14:13→16:58)
[2025-05-29] MEDS: KCL 160 MEQ IV (14:34)
[2025-05-29] MEDS: ROCEPHIN 1000 MG IV (15:31)
[2025-05-29] MEDS: STERILE WATER FOR INJECTION 10 ML IV (15:31)
--- NOTE | 2025-05-29 15:32 | CM ---
CM reviewed chart and pt with nursing
Pt continues to be independent throughout room per nursing
Pt continues to require to be straight cathed- CM to follow for possible new [facility] needs
Discharge Disposition- anticipate home no needs, follow for possible new [facility]
[2025-05-29 15:33] VITALS: BP 121/60
[2025-05-29 16:20] LABS: Glucose - Point of Care 168 mg/dl (70-99)
[2025-05-29] MEDS: 0.45% NACL with KCL 20 MEQ 1000 IV (16:53)
[2025-05-29] MEDS: LIPITOR 20 MG PO (16:58)
[2025-05-29] MEDS: XARELTO 20 MG PO (16:58)
[2025-05-29 19:50] VITALS: BP 121/64
[2025-05-29] MEDS: FLORASTOR 250 MG PO (20:32)
[2025-05-29 20:55] LABS: Glucose - Point of Care 192 mg/dl (70-99)
[2025-05-29 23:30] VITALS: BP 116/67
[2025-05-30] MEDS: 0.45% NACL with KCL 20 MEQ 1000 IV (02:59)
[2025-05-30 03:27] VITALS: BP 146/77
[2025-05-30 07:25] VITALS: BP 139/63
[2025-05-30] MEDS: SPIRIVA RESPIMAT 2.5 MCG 2 PUFF INH (07:44)
[2025-05-30 08:08] LABS: Hematocrit 35.3 % (39.0-52.0); Hemoglobin 11.6 g/dL (13.0-18.0); Mean Corp Hgb Conc. 32.9 g/dL (33.0-37.0); Mean Corpuscular Volume 83.8 fL (80.0-94.0); Platelet Count 194 10^3/uL (130-400); Red Cell Dist. Width 15.9 % (11.5-14.5)
[2025-05-30 08:28] LABS: Glucose - Point of Care 144 mg/dl (70-99)
[2025-05-30] MEDS: NOVOLOG FLEXPEN-LOW RESISTANCE SC (08:39)
[2025-05-30 08:48] LABS: Blood Urea Nitrogen 10 mg/dl (9-20); Calcium 7.8 mg/dl (8.4-10.2); Carbon Dioxide 25 mmol/L (22-30); Chloride 108 mmol/L (98-107); Estimated Creatinine Clearance > 125 ml/min; Glucose 150 mg/dl (70-99); Magnesium 1.8 mg/dl (1.6-2.3); Potassium 3.1 mmol/L (3.5-5.1); Sodium 139 mmol/L (135-145); eGFR > 60.00
[2025-05-30] MEDS: VITAMIN B-12 1000 MCG PO (09:30)
[2025-05-30] MEDS: LANTUS 0.16 UNITS SC (09:31)
[2025-05-30] MEDS: FLORASTOR 250 MG PO (09:31)
--- NOTE | 2025-05-30 11:18 | W.PN.HOSP.TC ---
Today's Communication/Plan
-
Replete potassium. Discharge planning today
Assessment / Plan
Assessment / Plan
Physical exam:
General: Well Developed, Well Nourished and No Apparent Distress
HEENT: Normocephalic, Atraumatic and Moist Mucous Membranes
Respiratory: Clear to Auscultation; Negative Wheezes, Rales or Rhonchi
Cardiac: Regular Rhythm and S1/S2
GI: Soft, Nontender and Nondistended
Musculoskeletal: No Clubbing, No Cyanosis and No Edema
Neuro: Awake, Alert and Oriented, no neurological deficits
Psych: Calm
Impression:
Patient is a pleasant 69 years old with history of insulin-dependent diabetes mellitus, hypertension, atrial fibrillation, hyperlipidemia, who came to the ER with nausea, vomiting, diarrhea since Wednesday night, improved on Wednesday and went to ER
at [place] on Wednesday where CT scan done with IV contrast shows no acute finding but noted gallstone, diverticulosis, gastric lipoma and enlarged prostate.
Patient was having diarrhea every hour yesterday and feels dehydrated, came to the ER at the outside hospital where found to have acute renal failure, hyperkalemia, acute metabolic acidosis.
Patient with history of permanent A-fib, he stopped taking Lasix and hydrochlorothiazide when he started having symptoms on Wednesday but rest of medication he was taking it as prescribed.
Patient will be admitted under hospitalist service.
Started on bicarb drip, potassium replaced.
Kidney function and acidosis improved but still with hypokalemia.
Persistent diarrhea.
Stool studies pending.
Assessment/plan:
Acute kidney injury.
Acute metabolic acidosis
Possible prerenal azotemia secondary to volume loss vs contrast induced nephropathy
Hold nephrotoxins.
Hold blood pressure medications for now.
Hold metformin.
Patient also received contrast at [facility] on Wednesday
Monitor BMP.
Start bicarb drip.
05/28
Acute renal failure and leukocytosis improved
Continue bicarb drip
05/29
Stop bicarb drip
Creatinine and bicarb stabilized
Gentle hydration with potassium and stop later today if no more diarrhea
PT eval for discharge disposition
05/30
Replete oral potassium
Can go home today
Acute gastroenteritis.
Acute diarrheal illness.
Patient did eat at dinner before symptoms started.
Stool studies pending but mostly negative for infection
Hypokalemia.
Secondary to GI loss
Replace and continue to monitor
05/29:
Replete IV and orally today
Recheck magnesium
05/30:
Replete orally potassium
Leucocytosis:
-Mild,
-Likely reactive
Permanent A-fib.
Continue Xarelto.
Change dose back to 20 mg based on kidney function
History�of�insulin-dependent diabetes�mellitus
Continue�Lantus.
Hold metformin
Insulin�sliding�scale
Diabetic�diet
Hemoglobin A1c
History�of�hypertension
Patient is hypertensive in the ER, hold blood pressure medications for now and resume gradually
History of hyperlipidemia
Patient on amlodipine/atorvastatin at home.
Resume statin for now
Urinary retention
Bladder scan/straight cath protocol.
May consider [facility] and urology consult as outpatient (reached out to urology to let them know-Dr. Warren)
CODE STATUS:�Full�code
DVT�prophylaxis:�Xarelto
Diet:�DM diet
Family�communication: Discussed with prior by Dr. Antunez
Disposition: Discharge home today
Reviewed stool study
Anticipated Discharge: Today
Subjective/Interval History
-
Date of Service: May 30, 2025
Patient had normal bowel movement today. Tolerating diet.
Objective Data
-
Labs:
Laboratory Results
05/30/25
06:23
WBC 8.2
Hgb 11.6 L
Hct 35.3 L
Plt Count 194
Sodium 139
Potassium 3.1 L
Chloride 108 H
Carbon Dioxide 25
BUN 10
Creatinine 0.7
Glucose 150 H
Calcium 7.8 L
Vital Signs:
Vital Signs
Temp Pulse Resp BP Pulse Ox
98.5 F 78 16 139/63 94
05/30/25 07:25 05/30/25 07:45 05/30/25 07:45 05/30/25 07:25 05/30/25 07:45
I&O
05/29/25 05/30/25 05/31/25
06:59 06:59 06:59
Intake Total 2550 / 2550 1780 / 1780
Output Total 1350 / 1350 600 / 600
Balance 1200 / 1200 1780 / 1780 -600 / -600
--- NOTE | 2025-05-30 11:22 | W.DCSUMMARY ---
Discharge Summary
Discharge Data
Date of Admission: 05/27/25
Date of Discharge: 05/30/25
Total time spent discharging patient (in min): 32
-
Pending Results: No
Hospital Course
Patient is 69 years old male with history of diabetes mellitus, hypertension, A-fib, hyperlipidemia, came into the hospital with diarrhea. He was also found to be in CINDI and metabolic acidosis as well as electrolyte abnormalities. Patient was
hydrated aggressively. He stool C. difficile was negative and also stool cultures negative overall. He did have some urinary retention and abnormal urine culture so it was decided to treat for possible UTI for 3 days. He also had some urinary
retention and at some point he was retaining more than 600 cc and lately on last retention was tomorrow at 250 cc so it was decided to put a Hill catheter in and have an outpatient void trial and follow-up with urology as outpatient. I reached out
to urology, Dr. Warren who will see him as outpatient. Creatinine was 2.4 and went down to 0.7 upon discharge. Otherwise, patient is hemodynamically stable and his diarrhea resolved and his electrolytes improving with ongoing replacement and his
renal function back to normal. Some adjustments made on his medications until follow-up blood work as outpatient. Patient will be discharged in stable condition today.
Discharge duration: 32 minutes
Discharge Plan
-
Patient Disposition: Home with Home Care
Discharge Diagnosis/Procedures: Acute gastroenteritis. Urinary tract infection. Acute kidney injury. Metabolic acidosis. Hypokalemia.
Diet: Low Cholesterol
Activity: As tolerated
Blood Work: Please PCP to order CBC, BMP within 1 week
Referrals:
Gareth Warren MD [Active, Urology] - in one to two weeks
Referral Note: urinary retention
Nicole Plata CRNP [Family Provider, Family Practice]
Prescriptions:
New
cephalexin 500 mg capsule
500 mg PO BID Qty: 4 0RF
Continued
cyanocobalamin (vitamin B-12) 1,000 mcg Tablet
1,000 mcg PO DAILY
furosemide 20 mg Tablet
20 mg PO MOWEFR
insulin glargine [Lantus Solostar U-100 Insulin] 100 unit/mL (3 mL) Insulin Pen
16 unit SC BID
Spiriva Respimat 2.5 mcg/actuation Mist
2 inh INHALATION DAILY
amlodipine-atorvastatin [Caduet] 10-80 mg Tablet
1 tab PO QPM
metformin 500 mg Tablet Extended Release 24 Hr
1,000 mg PO BID
carvedilol 25 mg tablet
25 mg PO BID
Xarelto 20 mg tablet
20 mg PO QPM
Mounjaro 5 mg/0.5 mL pen injector
5 mg SC MO
ezetimibe 10 mg tablet
10 mg PO DAILY
Held
olmesartan 40 mg Tablet
40 mg PO DAILY
Hold Instructions: Resume on 06/04/25.
Discontinued
hydrochlorothiazide 25 mg tablet
25 mg PO DAILY
Discharge Orders:
Discharge Patient (As Directed); Ordered 05/30/25
Ordered By: Teodoro Solomon
Discharge Date and Time
Discharge Date/Time: 05/30/25 15:35
Print Language: YORUBA
[2025-05-30 11:25] VITALS: BP 133/61
--- NOTE | 2025-05-30 11:44 | CM ---
Addendum entered by Stormy Vizcaino 05/30/25 12:05:
[facility]
[phone]

Addendum entered by Stormy Vizcaino 05/30/25 11:59:
Per [facility] they cannot accept patient out of area, patient's second choice is [facility] referral sent to [facility].
Original Note:
According to updated notes on patient, patient is for discharge to home today with with Sergio, plan will be to set up visiting nurses options reviewed with patient and patient has selected [facility], [facility] liaison contacted.
Plan; Home today with [facility], friend to transport, IMM completed and placed on chart.
[2025-05-30] MEDS: KCL 40 MEQ PO ×2 (12:04→13:22)
[2025-05-30 12:26] LABS: Glucose - Point of Care 169 mg/dl (70-99)
[2025-05-30] MEDS: FLUZONE HIGH-DOSE 2025-26 0.5 ML IM (13:14)
[2025-05-30] MEDS: ROCEPHIN IV ×2 (13:16→13:22)
[2025-05-30] MEDS: STERILE WATER FOR INJECTION IV ×2 (13:17→13:22)
[2025-05-30] MEDS: NOVOLOG FLEXPEN-LOW RESISTANCE 1 UNITS SC (13:18)
[2025-05-30 13:19] LABS: Glucose - Point of Care 163 mg/dl (70-99)
== END 2025-05-30 15:35 | disposition home health service (06) | DRG 683 ==
LOC: 4 WEST ACU 11:42
PROVIDERS: ADMITTING PHYSICIAN General Practice; ATTENDING PHYSICIAN Hospitalist; EMERGENCY PHYSICIAN Emergency Medicine; FAMILY PHYSICIAN Nurse Practitioner Family
PROC: 3E02340 Introduction of Influenza Vaccine into Muscle, Percutaneous Approach (ICD-10-PCS; 2025-05-30)
DX: N17.9 Acute kidney failure, unspecified (principal); E87.21 Acute metabolic acidosis; I48.21 Permanent atrial fibrillation; D72.829 Elevated white blood cell count, unspecified; E11.9 Type 2 diabetes mellitus without complications; Z79.4 Long term (current) use of insulin; I10 Essential (primary) hypertension; D17.5 Benign lipomatous neoplasm of intra-abdominal organs; N40.0 Benign prostatic hyperplasia without lower urinary tract symptoms; K57.30 Diverticulosis of large intestine without perforation or abscess without bleeding; E86.0 Dehydration; K80.20 Calculus of gallbladder without cholecystitis without obstruction; E87.6 Hypokalemia; N14.11 Contrast-induced nephropathy; E66.9 Obesity, unspecified; Z68.37 Body mass index [BMI] 37.0-37.9, adult; E78.00 Pure hypercholesterolemia, unspecified; I71.40 Abdominal aortic aneurysm, without rupture, unspecified; J44.9 Chronic obstructive pulmonary disease, unspecified; Z79.01 Long term (current) use of anticoagulants; Z87.891 Personal history of nicotine dependence; Z23 Encounter for immunization
CPT/HCPCS: 80048; 80053; 81003; 81015; 82962; 83036; 83690; 83735; 83880; 85025; 85027; 87045; 87046; 87077; 87086; 87324; 87427; 87449; 89055; 90662; 93005; 94640; 96361; 96374; 96375; 97162; 99285; G0008; J3480

== ENCOUNTER 2025-06-15 10:14 | Emergency (ER) | payer MEDICARE, SELFPAY ==
[2025-06-15 10:15] VITALS: BP 128/87
[2025-06-15 10:37] VITALS: BP 99/57
[2025-06-15 10:58] LABS: Hematocrit 42.1 % (39.0-52.0); Hemoglobin 13.1 g/dL (13.0-18.0); Mean Corp Hgb Conc. 31.1 g/dL (33.0-37.0); Mean Corpuscular Volume 89.8 fL (80.0-94.0); Nucleated Red Blood Cells % 0 % (-); Platelet Count 273 10^3/uL (130-400); Red Cell Dist. Width 16.6 % (11.5-14.5)
[2025-06-15 11:00] VITALS: BP 97/59
[2025-06-15 11:09] LABS: ALT (SGPT) 15 U/L (0-50); AST (SGOT) 15 U/L (17-59); Albumin 4.1 g/dl (3.5-5.0); Alkaline Phosphatase 89 U/L (38-126); Blood Urea Nitrogen 26 mg/dl (9-20); Calcium 8.8 mg/dl (8.4-10.2); Carbon Dioxide 21 mmol/L (22-30); Chloride 103 mmol/L (98-107); Glucose 140 mg/dl (70-99); Lipase 197 U/L (23-300); Potassium 3.9 mmol/L (3.5-5.1); Sodium 133 mmol/L (135-145); Total Protein 7.5 g/dl (6.3-8.2); eGFR > 60.00
--- NOTE | 2025-06-15 11:42 | ED.GENMED ---
History of Present Illness
<Star Bailey DO - Last Filed: 06/15/25 11:46>
General
Chief Complaint: Abdominal Symptoms
Source: patient and records
Exam Limitations: none
Time Seen by Provider: 06/15/25 10:29
Nursing documentation reviewed up to this point in time: agreed with
History of Present Illness
History of Present Illness:
69-year-old male permanent A-fib on Xarelto diabetes, presents with diarrhea and nausea, lower abdominal cramping, admitted a few weeks ago with similar, ultimately required a catheter for urinary retention, no fevers, no blood in his stool, PCP
gave him some Zofran yesterday a little bit of relief, he did follow-up with urology catheter was removed scheduled for cystoscopy, apparently not totally emptying his bladder
Past History
<Star Bailey DO - Last Filed: 06/15/25 11:46>
Past History
ED Past Medical History: Arrthythmia (Atrial fibrillation), HTN, Hypercholesterolemia, IDDM and Other (Abdominal aortic aneurysm)
ED Past Surgical History: Other (Cataracts)
Social History
Tobacco: Former smoker
Alcohol: None
Drug: None
Personal:
Living: with family
Employment: Retired
Review of Systems
<DO Nelson Payne Last Filed: 06/15/25 11:46>
Review of Systems
All Other Systems: Not applicable
Constitutional: Reports fatigue; Denies fever
EENT: Reports no symptoms
Respiratory: Reports no symptoms
Cardiac: Denies chest pain
ABD/GI: Reports abdominal pain, nausea and diarrhea
: Reports no symptoms
Musculoskeletal: Reports no symptoms
Skin: Reports no symptoms
Neurological: Reports weakness
Endocrine: Reports no symptoms
Phy Exam
<Star Bailey DO - Last Filed: 06/15/25 11:46>
Physical Exam
Physical Exam:
Physical Exam
General: no apparent distress, not acutely ill
Neck: Lips are slightly dry
Heart: Irregular
Lungs: no acute respiratory distress. clear bilaterally
Abdomen: Soft mild left greater than right lower abdominal tender
Neuro: alert and oriented. no focal neurological deficits
Skin: no rash
Psychiatric: well kept. interactive and cooperative
Extremities: no edema.
Course
<Star Bailey, DO - Last Filed: 06/15/25 11:46>
Orders/Labs/Results
Orders:
Orders
06/15/25 10:40
Complete Blood Count/With Diff Urgent
Comprehensive Metabolic Panel Urgent
Lipase Urgent
06/15/25 11:27
Electrocardiogram (*1) Urgent
Reason for Study: Abdominal Pain
Bladder Scan- Treatment ONCE
EKG- Treatment ONCE
STOOL [C difficile Antigen & Toxins] Urgent
NOÉ Source: Feces/Stool
Specimen Description:
Stool Culture Urgent
NOÉ Source: Feces/Stool
Specimen Description:
0.9% Sodium Chloride 1000 ml [Nss] 1,000 ml IV BOLUS
06/15/25 12:03
CT Abd/pelvis W Iv Cont Urgent
Comment:
Reason For Exam: pain nauea loose stool
Abnormal Lab Results
06/15/25
10:40
RBC 4.69 L 10^6/uL
(4.70-6.10)
MCHC 31.1 L g/dL
(33.0-37.0)
RDW 16.6 H %
(11.5-14.5)
Absolute Lymphs (auto) 0.7 L 10^3/uL
(1.2-3.4)
Absolute Monos (auto) 0.7 H 10^3/uL
(0.1-0.6)
Lymphocytes % 11.4 L %
(20.5-51.1)
Monocytes % 11.6 H %
(1.7-9.3)
Sodium 133 L mmol/L
(135-145)
Carbon Dioxide 21 L mmol/L
(22-30)
BUN 26 H mg/dl
(9-20)
Glucose 140 H mg/dl
(70-99)
Total Bilirubin 2.3 H mg/dl
(0.2-1.3)
AST 15 L U/L
(17-59)
06/15/25 10:40
06/15/25 10:40
Vital Signs
Initial and Last Documented VS:
Initial Vital Signs
Temp Pulse Resp BP Pulse Ox
97.9 F 61 16 128/87 97
06/15/25 10:15 06/15/25 10:15 06/15/25 10:15 06/15/25 10:15 06/15/25 10:15
Last Documented Vital Signs
Temp Pulse Resp BP Pulse Ox
97.9 F 86 15 117/69 91
06/15/25 10:15 06/15/25 13:15 06/15/25 13:15 06/15/25 13:00 06/15/25 13:15
Ramyalt;Elia Suarez PA-C - Last Filed: 06/15/25 15:08>
Orders/Labs/Results
Orders:
Orders
06/15/25 10:40
Complete Blood Count/With Diff Urgent
Comprehensive Metabolic Panel Urgent
Lipase Urgent
06/15/25 11:27
Electrocardiogram (*1) Urgent
Reason for Study: Abdominal Pain
Bladder Scan- Treatment ONCE
EKG- Treatment ONCE
STOOL [C difficile Antigen & Toxins] Urgent
NOÉ Source: Feces/Stool
Specimen Description:
Stool Culture Urgent
NOÉ Source: Feces/Stool
Specimen Description:
0.9% Sodium Chloride 1000 ml [Nss] 1,000 ml IV BOLUS
06/15/25 12:03
CT Abd/pelvis W Iv Cont Urgent
Comment:
Reason For Exam: pain nauea loose stool
Abnormal Lab Results
06/15/25
10:40
RBC 4.69 L 10^6/uL
(4.70-6.10)
MCHC 31.1 L g/dL
(33.0-37.0)
RDW 16.6 H %
(11.5-14.5)
Absolute Lymphs (auto) 0.7 L 10^3/uL
(1.2-3.4)
Absolute Monos (auto) 0.7 H 10^3/uL
(0.1-0.6)
Lymphocytes % 11.4 L %
(20.5-51.1)
Monocytes % 11.6 H %
(1.7-9.3)
Sodium 133 L mmol/L
(135-145)
Carbon Dioxide 21 L mmol/L
(22-30)
BUN 26 H mg/dl
(9-20)
Glucose 140 H mg/dl
(70-99)
Total Bilirubin 2.3 H mg/dl
(0.2-1.3)
AST 15 L U/L
(17-59)
06/15/25 10:40
06/15/25 10:40
Vital Signs
Initial and Last Documented VS:
Initial Vital Signs
Temp Pulse Resp BP Pulse Ox
97.9 F 61 16 128/87 97
06/15/25 10:15 06/15/25 10:15 06/15/25 10:15 06/15/25 10:15 06/15/25 10:15
Last Documented Vital Signs
Temp Pulse Resp BP Pulse Ox
97.9 F 86 15 117/69 91
06/15/25 10:15 06/15/25 13:15 06/15/25 13:15 06/15/25 13:00 06/15/25 13:15
<Star Bailey DO - Last Filed: 06/15/25 11:46>
MDM/Problems Addressed
Differential Diagnosis Includes:
Colitis infectious diarrhea viral syndrome dehydration electrolyte abnormality
MDM/Problems Addressed:
Nausea diarrhea
Chronic conditions affecting care:
Diabetes,
Acute Exacerbation and/or Progression of Chronic Illness: DM
<Star Bailey DO - Last Filed: 06/15/25 11:46>
*Radiology
Radiology exam reviewed: radiology read reviewed
*Pulse Oximetry
SaO2: 97
Oxygen Mode of Delivery: Room air
Patient hypoxic: no
*EKG
Interpreted by ED Provider?: Yes
Interpretation: abnormal
Comparison EKG: no comparison EKG present
Heart Rate: 78
Rate: normal
Rhythm: a-fib
Ischemia: non-specific ST changes
*Import[employer] Fre[employer] Interpretation
Rate: normal
Interpretation: normal
Heart Rate: 78
Rhythm: a-fib
*Critical Care Note
Total Time (30-74mins, 75-104mins- exclusive of procedures): Not Applicable
Data Reviewed
Review of Other/Old Records Reveals: Labs and Discharge Summary
Source: patient
<Elia Suarez PA-C - Last Filed: 06/15/25 15:08>
Update Note
Update Note:
Assumed care of patient pending CT. CT without obvious acute findings. Patient is feeling better benign exam upon reassessment. Labs reviewed. No indication for admission. Stable for discharge
ED Attending Note
<Star Bailey DO - Last Filed: 10/24/25 11:46>
-
Portions of this chart may have been created with voice recognition software.� Occasional wrong word or��sound alike� substitutions may have occurred due to the inherent limitations of voice recognition software.
Discharge Plan
Departure
Patient Disposition: Home (Routine Discharge)
Date of Disposition: 06/15/25
Time of Disposition: 15:08
Patient with high blood pressure during this ER visit?: No
Discharge Problem:
Diarrhea
Instructions: Diarrhea in teens and adults
Prescriptions:
No Action
cyanocobalamin (vitamin B-12) 1,000 mcg Tablet
1,000 mcg PO DAILY
furosemide 20 mg Tablet
20 mg PO MOWEFR
olmesartan 40 mg Tablet
40 mg PO DAILY
insulin glargine [Lantus Solostar U-100 Insulin] 100 unit/mL (3 mL) Insulin Pen
16 unit SC BID
Spiriva Respimat 2.5 mcg/actuation Mist
2 inh INHALATION DAILY
amlodipine-atorvastatin [Caduet] 10-80 mg Tablet
1 tab PO QPM
metformin 500 mg Tablet Extended Release 24 Hr
1,000 mg PO BID
carvedilol 25 mg tablet
25 mg PO BID
Xarelto 20 mg tablet
20 mg PO QPM
Mounjaro 5 mg/0.5 mL pen injector
5 mg SC MO
ezetimibe 10 mg tablet
10 mg PO DAILY
cephalexin 500 mg capsule
500 mg PO BID Qty: 4 0RF
Referrals:
Nicole Plata CRNP [Family Provider, Family Practice]
Activity Restrictions/Additional Instructions:
Eat a bland diet. Stay hydrated. Return if worse otherwise follow-up with your doctor
Interventions
Interventions:
*Risk Screen - Suicide Last Done: 06/15/25 10:15
*Neglect/Abuse Screening Last Done: 06/15/25 10:15
*ED COVID-19 Vaccine History Last Done: 06/15/25 10:43
*ED Influenza Vaccine History Last Done: 06/15/25 10:43
WF-Tcpfnc-Aohiasxfom Assessment Last Done: 06/15/25 10:44
Discharge Date and Time
Print Language: KITTITIAN
[2025-06-15] MEDS: NSS 1000 IV (11:48)
[2025-06-15 12:06] VITALS: BP 100/66
[2025-06-15 13:00] VITALS: BP 117/69
== END 2025-06-15 15:17 | disposition home or self-care (01) ==
LOC: EMR 10:14
PROVIDERS: EMERGENCY PHYSICIAN Emergency Medicine; FAMILY PHYSICIAN Nurse Practitioner Family
DX: R19.7 Diarrhea, unspecified (principal); R11.0 Nausea; R10.9 Unspecified abdominal pain; I48.91 Unspecified atrial fibrillation; I10 Essential (primary) hypertension; E78.00 Pure hypercholesterolemia, unspecified; E11.9 Type 2 diabetes mellitus without complications; I25.10 Atherosclerotic heart disease of native coronary artery without angina pectoris; Z79.01 Long term (current) use of anticoagulants; Z86.79 Personal history of other diseases of the circulatory system; Z87.891 Personal history of nicotine dependence
CPT/HCPCS: 99284; 74177; 80053; 83690; 85025; 93005; Q9967

== ENCOUNTER 2025-06-24 04:53 | Observation (INO) | payer MEDICARE, SELFPAY ==
[2025-06-23 17:21] VITALS: BP 124/55
[2025-06-23 17:54] LABS: Hematocrit 45.8 % (39.0-52.0); Hemoglobin 14.5 g/dL (13.0-18.0); Mean Corp Hgb Conc. 31.7 g/dL (33.0-37.0); Mean Corpuscular Volume 88.1 fL (80.0-94.0); Nucleated Red Blood Cells % 0 % (-); Platelet Count 264 10^3/uL (130-400); Red Cell Dist. Width 16.0 % (11.5-14.5)
[2025-06-23 18:19] LABS: ALT (SGPT) 17 U/L (0-50); AST (SGOT) 17 U/L (17-59); Albumin 4.2 g/dl (3.5-5.0); Alkaline Phosphatase 91 U/L (38-126); Blood Urea Nitrogen 34 mg/dl (9-20); Calcium 9.5 mg/dl (8.4-10.2); Carbon Dioxide 23 mmol/L (22-30); Chloride 104 mmol/L (98-107); Glucose 148 mg/dl (70-99); Lipase 185 U/L (23-300); Potassium 4.1 mmol/L (3.5-5.1); Sodium 139 mmol/L (135-145); Total Protein 7.2 g/dl (6.3-8.2); eGFR > 60.00
[2025-06-23 22:01] VITALS: BP 117/59
[2025-06-23 22:48] VITALS: BP 108/52
[2025-06-23] MEDS: ZOFRAN 4 MG IV (22:51)
[2025-06-23] MEDS: NSS 1000 IV (22:51)
[2025-06-23 23:00] VITALS: BP 103/50
[2025-06-23 23:22] LABS: Troponin I < 0.012 ng/ml
[2025-06-24] VITALS (10 sets, daily range): BP systolic 98–128; BP diastolic 46–60; BMI 37.5
--- NOTE | 2025-06-24 00:36 | ED.GENMED ---
History of Present Illness
General
Chief Complaint: Abdominal Symptoms
Source: patient
Time Seen by Provider: 06/23/25 22:04
History of Present Illness
History of Present Illness:
Note:
CHIEF COMPLAINT(S)
Nausea, vomiting, watery diarrhea, difficulty urinating.
HISTORY OF PRESENT ILLNESS
The patient is a 69-year-old male with a history of diabetes who presents with nausea, vomiting, and severe watery diarrhea. These symptoms began for the third time this month, originally starting on the last day of April. The patient was
initially evaluated at [facility] where a CT scan and bloodwork were performed; however, he was sent home without resolution of his symptoms. Afterwards, his symptoms recurred, prompting a visit to [facility] in early May where
he was admitted from May 27 to . During that admission, he received potassium supplementation and required catheterization due to urinary retention. A urologist, Dr. Warren, was involved in his care.
The patient reports a temporary improvement in symptoms following this intervention but experienced another recurrence approximately two weeks later. This morning, the patient awoke with abdominal discomfort and began vomiting a half-hour later,
noting that his vomitus was primarily liquid. Approximately two hours after the onset of vomiting, he experienced diarrhea. These symptoms recurred in the afternoon, prompting todays visit.
The patient is diabetic with relatively low recent blood glucose readings, typically in the range of 97-143 mg/dL. His blood pressure has also been low, described as under 110/60 mmHg. He did not take any medications today except for Zofran
(ondansetron), prescribed by his family physician for nausea, which he took this morning. He has also been on Flomax (tamsulosin) initiated by his urologist. He recently increased his Monjaro (tirzepatide) two months ago at a five milligram dosage
after experiencing minor gastrointestinal discomfort with initial dosing. He reports being on a blood thinner, Eliquis (apixaban), for atrial fibrillation. There is no report of hematemesis, melena, chest pain, or shortness of breath.
PAST MEDICAL AND SURIGICAL HISTORY
The patient has a history of diabetes.
CHRONIC MEDICAL CONDITIONS SIGNIFICANTLY AFFECTING CARE
Diabetes Mellitus
MEDICATIONS
1. Zofran (ondansetron) for nausea
2. Plomax (tamsulosin)
3. Monjaro (tirzepatide) for diabetes
4. Eliquis (apixaban) for atrial fibrillation
REVIEW OF SYSTEMS
- Gastrointestinal: Nausea, vomiting, watery diarrhea, no blood in vomit or stool, no constipation reported.
- Genitourinary: Recent difficulty urinating addressed with catheterization.
- Cardiovascular: Blood pressure has been low; patient on blood thinners for atrial fibrillation.
- Respiratory: Denies chest pain or shortness of breath.
- Musculoskeletal: No complaints noted.
PHYSICAL EXAM
General: Alert, no acute distress. Morbidly obese
Skin: Warm, dry.
Head: Normocephalic, atraumatic.
Neck: Supple, trachea midline.
Eyes, Ears, Nose, Mouth, and Throat: Oral mucosa moist.
Cardiovascular: Normal peripheral perfusion, no edema.
Respiratory: Respirations are non-labored.
Gastrointestinal: Abdomen nondistended. Hyperactive bowel sounds's. Diffuse tenderness to palpation
Back: Normal range of motion, normal alignment.
Musculoskeletal: Normal range of motion, normal strength.
Neurological: Alert and oriented to person, place, time, and situation, no focal neurological deficit observed.
Psychiatric: Cooperative, appropriate mood & affect.
PROBLEM LIST
Acute Problems:
1. Recurrent nausea and vomiting
2. Watery diarrhea
3. Difficulty urinating
Chronic Problems:
1. Diabetes Mellitus
PLAN
1. Obtain a CT scan to reassess and evaluate the cause of recurrent symptoms.
2. Administer intravenous fluids to address dehydration.
3. Provide anti-nausea medication (ondansetron).
4. Reassess blood work, particularly white cell count.
DIFFERENTIAL DIAGNOSIS
The differential diagnosis includes, in no particular order and is not limited to:
1. Gastroenteritis
2. Bowel obstruction
3. Renal or urinary tract infection
4. Clostridium difficile infection
5. Medication-induced gastrointestinal symptoms
6. Diabetic gastroparesis
7. Acute pancreatitis
8. Inflammatory bowel disease
9. Irritable bowel syndrome
10. Small intestinal bacterial overgrowth (SIBO)
Disposition:
SUMMARY OF ENCOUNTER
The patient, a 69-year-old male with a history of diabetes, presented to the emergency department with complaints of continued nausea, vomiting, and loose stools. This incident bright the fourth visit for similar symptoms. Given the recurrent nature
of the symptoms and previous unsuccessful outpatient management attempts, a decision was made to admit the patient for further observation and evaluation.
DISPOSITION
The patient is to be admitted for observation and further evaluation.
ASSESSMENT
The patients recurrent symptoms suggest a potential underlying gastrointestinal condition that requires further evaluation and management. Possible differential diagnoses include gastroenteritis, bowel obstruction, Clostridium difficile infection,
or other gastrointestinal disorders.
PLAN
Admit the patient for further observation and management. Conduct a comprehensive evaluation to determine the underlying cause of symptoms, which may include radiological imaging and laboratory testing. Continue monitoring the patients hydration
status and provide appropriate supportive care.
MEDICATION RECONCILIATION
1. Ondansetron (for nausea).
2. Apixaban (for atrial fibrillation).
3. Tamsulosin (for urinary symptoms).
4. Tirzepatide (for diabetes management).
MEDICAL DECISION MAKING
- Number and Complexity of Problems Addressed: Chronic conditions affecting care: Diabetes Mellitus. Differential Diagnosis includes gastroenteritis, bowel obstruction, Clostridium difficile infection, medication-induced gastrointestinal symptoms,
diabetic gastroparesis, and inflammatory bowel disease.
- Risk: Admission for observation due to the complexity of symptoms and recurrence, which suggests the potential need for further intervention and monitoring within a hospital setting.
Past History
Past History
ED Past Medical History: Arrthythmia (Atrial fibrillation), HTN, Hypercholesterolemia, IDDM and Other (Abdominal aortic aneurysm)
ED Past Surgical History: Other (Cataracts)
Social History
Tobacco: Former smoker
Alcohol: None
Drug: None
Personal:
Living: with family
Employment: Retired
Phy Exam
Physical Exam
Physical Exam:
.
Course
Orders/Labs/Results
Orders:
Orders
06/23/25 17:38
Complete Blood Count/With Diff Urgent
Comprehensive Metabolic Panel Urgent
Lipase Urgent
06/23/25 22:28
0.9% Sodium Chloride 1000 ml [Nss] 1,000 ml IV BOLUS
06/23/25 22:29
CT Abd/pelvis W Iv Cont Urgent
Comment:
Reason For Exam: continud abd pain, worsening
06/23/25 22:30
EKG- Treatment ONCE
Ondansetron Injectable [Zofran] 4 mg IV NOW STA
06/23/25 22:45
Troponin I Urgent
06/24/25 01:00
0.9% Sodium Chloride 1000 ml [Nss] 1,000 ml IV 250 mls/hr
06/24/25 01:04
C difficile Antigen & Toxins Urgent
NOÉ Source: ST
Specimen Description:
Date Specimen was Collected: 06/24/25
Time Specimen was Collected: 00:59
Comment: ADD ON
Stool Culture Urgent
NOÉ Source: Feces/Stool
Specimen Description:
Date Specimen was Collected: 06/24/25
Time Specimen was Collected: 00:59
06/24/25 04:36
Admit/Transfer Patient As Directed
Co-Sign Provider:
Level of Care: Observation services
Assign to:: Medical/Surgical
Physician / Group: Yusef
Diagnosis: Enteritis
PRN Pain Medication Management As Directed
May give lesser potent ordered pain med per pt: Yes
preference::
Protocol:: Medication orders for pain may be administered in a
manner that supports deferring to patient preference
when the pt is:
- Requesting an ordered lesser potent pain medication.
Least to most potent pain medications are defined
as: acetaminophen < NSAID < tramadol < opioids
(morphine, oxycodone, hydromorphone).
- Requesting a lesser dose of the same medication IF
ORDERED.
- Requesting a less intrusive route of administration
if both routes are prescribed by the provider (PO <
IV).
06/24/25 04:38
Code Status As Directed
Resuscitation Status: Full Code
06/24/25 05:54
Acetaminophen [Tylenol] 650 mg PO Q4HPRN PRN
Dextrose 50%-Water [Dextrose 50% Syringe] 12.5 grams IV [id number] PRN
Glucagon [GlucaGen] 1 mg IM PRN PRN
Ipratropium/Albuterol Sulfate [Duoneb] 3 ml INH R Q4HPRN PRN
Lactated Ringers [Lr] 1,000 ml IV 100 mls/hr
Ondansetron Injectable [Zofran] 4 mg IV Q6HPRN PRN
06/24/25 05:54
Activity As Directed
Activity Level: Ambulate
With Assistance
Bedside Glucose Monitoring As Directed
Frequency: AC&HS
Additional Instructions:: Change to q6h if pt on TPN, tube feeding or not eating
Bladder Scan As Directed
Follow Bladder Retention/Intermittent Cath Algorithm?: Yes
PRN if no void in __ hours: 6
Frequency: Per Retention Algorithm
If Bladder Scan Result >: 400
then:: Straight cath
I/O [Intake/ Output] As Directed
Frequency: Per unit guidelines
Straight Cath As Directed
Frequency: Per Retention Algorithm
Additional Instructions: straight cath as needed per acute urinary retention algorithm for 24 hrs
Additional Instructions: for bladder scan greater than 400 mL
Vital Signs As Directed
Frequency: Per unit guidelines
Oxygen Therapy [O2 Therapy] [RESP] Routine
Titrate/Wean O2 to maintain O2 sat greater than (%): 94
06/24/25 Breakfast
2000 calorie (17 carb) Diabetic
At Your Request: Full Participation
06/24/25 06:12
Basic Metabolic Panel IN AM
Complete Blood Count/No Diff IN AM
TSH Reflex To Free T4 Routine
06/24/25 07:30
Insulin Aspart Corrective Low [Novolog Flexpen-Low Resistance] See Protocol SC AC
06/24/25 08:00
Carvedilol [Coreg] 25 mg PO BID
Ezetimibe [Zetia] 10 mg PO DAILY
Losartan [Cozaar] 100 mg PO DAILY
Tamsulosin [Flomax] 0.4 mg PO DAILY
Tiotropium Maxwell 2.5 Mcg [Spiriva Respimat 2.5 Mcg] 1 puff INH R DAILY
06/24/25 18:00
Rivaroxaban [Xarelto] 20 mg PO QPM
Abnormal Lab Results
06/23/25
17:38
WBC 15.4 H 10^3/uL
(4.8-10.8)
MCHC 31.7 L g/dL
(33.0-37.0)
RDW 16.0 H %
(11.5-14.5)
Abs Immat Gran (auto) 0.1 H 10^3/uL
(0-0.05)
Absolute Neuts (auto) 13.8 H 10^3/uL
(1.4-6.5)
Absolute Lymphs (auto) 0.5 L 10^3/uL
(1.2-3.4)
Absolute Monos (auto) 0.9 H 10^3/uL
(0.1-0.6)
Neutrophils % 90.0 H %
(42.2-75.2)
Lymphocytes % 3.1 L %
(20.5-51.1)
BUN 34 H mg/dl
(9-20)
Glucose 148 H mg/dl
(70-99)
Total Bilirubin 1.6 H mg/dl
(0.2-1.3)
06/23/25 17:38
06/23/25 17:38
Vital Signs
Initial and Last Documented VS:
Initial Vital Signs
Temp Pulse Resp BP Pulse Ox
98.9 F 83 18 124/55 95
06/23/25 17:21 06/23/25 17:21 06/23/25 17:21 06/23/25 17:21 06/23/25 17:21
Last Documented Vital Signs
Temp Pulse Resp BP Pulse Ox
97.5 F 83 19 106/54 94
06/24/25 16:21 06/24/25 20:50 06/24/25 16:21 06/24/25 20:50 06/24/25 16:55
*Pulse Oximetry
SaO2: 92
Oxygen Mode of Delivery: Room air
Patient hypoxic: no
*Critical Care Note
Total Time (30-74mins, 75-104mins- exclusive of procedures): Not Applicable
Update Note
Update Note:
NAME: YOMAIRA BHAKTA
DATE OF EXAM: 06/23/2025
Patient No: [id number]
Physician: DAX
Date of : 1955
Past Medical History (entered by Technologist):
Reason For Exam (entered by Technologist):
Other Notes (entered by Technologist): Pt c/o abd pain, nausea, diarrhea x 1 month. States he was seen here previously for same.
Prior sent
Additional Information (per [facility] Radiologist):
CT ABDOMEN/PELVIS (with IV contrast)
IMPRESSION:
Fluid throughout small bowel and colon which could reflect diarrheal illness such as with gastroenteritis or enteritis if clinically commensurate.
No CT changes of acute colitis at this time.
Severe colonic diverticulosis without evidence of diverticulitis.
No intestinal obstruction or free air.
Normal appendix.
Cholelithiasis.
No CT changes of acute cholecystitis or bile duct dilatation.
Additional findings: Tiny pancreatic calcifications consistent with chronic pancreatitis. Markedly enlarged prostate. Small probable cyst in left kidney. Atherosclerosis. Status post AAA repair with aortobiiliac stent graft. Chronic DDD/DJD.
Lumbar scoliosis. Diffuse osteopenia.
Case finalized on 06/24/25 00:33 EST
Nicholas Dos Santos M.D.
This report has been electronically signed and verified by the Radiologist whose name is printed above.
ED Attending Note
-
Portions of this chart may have been created with voice recognition software.� Occasional wrong word or��sound alike� substitutions may have occurred due to the inherent limitations of voice recognition software.
Discharge Plan
Departure
Patient Disposition: Admit
Date of Disposition: 06/24/25
Time of Disposition: 01:33
Admit to: Telemetry
Presentation/result/management discussed w/ accepting MD/DO: Hospitalist
Condition: Good
Discharge Problem:
Abdominal pain, Nausea & vomiting, Diarrhea
Interventions
Interventions:
*Risk Screen - Suicide Last Done: 06/23/25 17:21
*General Assessment Last Done: 06/23/25 17:21
*Neglect/Abuse Screening Last Done: 06/23/25 17:21
*ED- Fall Risk Assessment Last Done: 06/23/25 17:21
*ED COVID-19 Vaccine History Last Done: 06/23/25 17:21
*ED Influenza Vaccine History Last Done: 06/23/25 17:21
*Nursing Disposition Last Done: 06/24/25 16:10
XF-Nhetxk-Rvpgllmvfd Assessment Last Done: 06/24/25 11:04
Discharge Date and Time
Discharge Date/Time: 06/24/25 16:10
[2025-06-24] MEDS: NSS 1000 IV ×2 (01:07→04:39)
--- NOTE | 2025-06-24 04:40 | HPS.HSE ---
Family Physician
-
Family Physician: Nicole Plata
Chief Complaint
-
N/V/D
History of Present Illness
Patient is a 69y M with PMH significant for A-Fib, hypertension and DM-II who presents to ED complaining of recurrent N/V/D. Patient states that his symptoms started in late April and have been intermittent since that time. He has been
hospitalized for short stays here and at [facility] with temporary improvement in his symptoms. He reports N/V/D with at times bowel movements every hour. He denies any hematemesis, black or bloody stools. No fevers or chills. Mild,
crampy lower abdominal pain with diarrhea - but no other pain. No recent travel. No known sick contacts.
Upon further discussion with patient, he states that his Mounjaro dose was increased from 2/5 to 5mg weekly at the beginning of April.
He also notes that he had some difficulty adjusting to this medication even at lower doses - with similar, but milder, symptoms.
Medical History
Past Medical History
Past Medical History: Reports Other
Additional Past Medical History:
1. Atrial fibrillation, on Xarelto.
2. Hypertension.
3. Hypercholesterolemia.
4. Insulin-dependent diabetes.
5. Known abdominal aortic aneurysm.
6. Status post cataract surgery.
7. Obesity with a BMI of 37.6
Past Surgical History: Reports Other
Additional Past Surgical History:
Other (Cataracts, wisdom teeth)
Social History
Tobacco: Former Smoker
Alcohol: None
Drug: None
Family History
Family History: Not pertinent
Allergies / Home Medications
Allergies reflects when Allergies were last updated in [facility].
Home Medications with original date entered in [facility]
Allergy/Medication List:
Allergies
Allergy/AdvReac Type Severity Reaction Status Date / Time
No Known Allergies Allergy Verified 06/15/25 10:15
Home Medications
cyanocobalamin (vitamin B-12) 1,000 mcg tablet 1,000 mcg PO DAILY Supplement 04/04/22
furosemide 20 mg tablet 20 mg PO MOWEFR Fluid retention/Swelling 04/04/22
insulin glargine 100 unit/mL (3 mL) subcutaneous pen (Lantus Solostar U-100 Insulin) 16 unit SC BID Diabetes 04/04/22
olmesartan 40 mg tablet 40 mg PO DAILY Blood pressure 04/04/22
Held on 05/30/25. Instructions: Resume on 06/04/25.
tiotropium bromide 2.5 mcg/actuation mist for inhalation (Spiriva Respimat) 2 inh inhalation DAILY Lung/breathing issues 04/04/22
amlodipine 10 mg-atorvastatin 80 mg tablet (Caduet) 1 tab PO QPM Blood pressure 06/02/22
metformin 500 mg tablet,extended release 24 hr 1,000 mg PO BID Diabetes 06/12/22
carvedilol 25 mg tablet 25 mg PO BID Blood Pressure 05/27/25
ezetimibe 10 mg tablet 10 mg PO DAILY High Cholesterol 05/27/25
rivaroxaban 20 mg tablet (Xarelto) 20 mg PO QPM Blood Clot Prevention/Tx 05/27/25
tirzepatide 5 mg/0.5 mL subcutaneous pen injector (Mounjaro) 5 mg SC MO Diabetes 05/27/25
Review of Systems
-
History Source: Patient
A 12 point ROS was completed and negative except as noted: Yes
Constitutional: Reports Fatigue; Denies Fever or Chills
Respiratory: Denies Cough or Trouble Breathing
Cardiac: Denies Chest Pain or Palpitations
Abdomen/GI: Reports Abdominal Pain, Nausea, Vomiting and Diarrhea; Denies Bloody Stools or Black Stools
: Denies Dysuria or Frequency
Musculoskeletal: Denies Joint Pain or Edema
Neurological: Denies Dizzy or Headache
Physical Exam
Vital Signs
Vital Signs
Temp Pulse Resp BP Pulse Ox
98.9 F 80 19 109/46 94
06/23/25 17:21 06/24/25 04:15 06/24/25 04:15 06/24/25 04:00 06/24/25 04:13
Physical Exam
General: Other (69y M in no acute distress.)
HEENT: Moist mucous membranes, PERRLA and Other (Thick neck.)
Respiratory: Clear; No Wheezes, Rales or Rhonchi
Cardiac: S1/S2 and Irregular Rhythm; No Murmur
GI: Other (Obese, not tender, pos BS.)
Musculoskeletal: No Clubbing, No Cyanosis, No Edema and Other (Chronic venous stasis pigment changes.)
Neuro: AO x 3
Laboratory Results
-
06/23/25 17:38
06/23/25 17:38
Laboratory Results
Total Bilirubin 1.6 mg/dl (0.2-1.3) H 06/23/25 17:38
AST 17 U/L (17-59) 06/23/25 17:38
ALT 17 U/L (0-50) 06/23/25 17:38
Alkaline Phosphatase 91 U/L (38-126) 06/23/25 17:38
Troponin I < 0.012 ng/ml 06/23/25 22:45
Lipase 185 U/L (23-300) 06/23/25 17:38
Impression/Plan
-
A/P: Patient is a 69y M with PMH significant for A-Fib, hypertension and DM-II who presents to ED complaining of recurrent N/V/D.
Intractable / Recurrent N/V/D
- Observe overnight for further evaluation and treatment.
- Continue supportive care with IVFs, antiemetics, etc.
- Given duration / timing of intermittent symptoms - seems likely that his issues are due to higher dose of Mounjaro.
- Would not resume this medication - monitor for lasting improvement in symptoms.
Permanent Atrial Fibrillation
- Stable. Continue carvedilol. Continue Xarelto.
DM-II
- Hold metformin acutely. Continue basal insulin and cover with SSI as needed.
- Would remain off of Mounjaro as noted above.
Benign Hypertension
- Hold amlodipine acutely. Holding parameters for olmesartan.
- Continue carvedilol.
BPH
- Continue tamsulosin. Bladder scan protocol.
Morbid Obesity due to excess calories
- Affects all aspects of care.
- Would remain off of Mounjaro as noted above.
- Encourage healthy diet and increased activity with goal of weight reduction.
DVT Prophylaxis: On Xarelto
Code Status: Full
[2025-06-24] MEDS: LR 1000 IV ×2 (06:40→16:34)
[2025-06-24] MEDS: ZOFRAN 4 MG IV (06:40)
[2025-06-24 06:59] LABS: Blood Urea Nitrogen 27 mg/dl (9-20); Calcium 8.1 mg/dl (8.4-10.2); Carbon Dioxide 21 mmol/L (22-30); Chloride 108 mmol/L (98-107); Glucose 126 mg/dl (70-99); Potassium 3.4 mmol/L (3.5-5.1); Sodium 139 mmol/L (135-145); eGFR > 60.00
--- NOTE | 2025-06-24 07:32 | W.PN.HOSP.TC ---
Today's Communication/Plan
-
Doing better. See plan.
Assessment / Plan
Assessment / Plan
Physical Exam
General: Not in acute distress
HEENT: Moist mucous membranes
Respiratory: Clear to Auscultation Bilaterally
Cardiac: S1/S2 and Irregular Rhythm
GI: Other (Obese, not tender, positive bowel sounds)
Musculoskeletal: No Cyanosis, No Edema and Other (Chronic venous stasis pigment changes.)
Neuro: AAO x 3
Assessment/Plan
69 y/o male with past medical history significant for A-Fib, hypertension and DM-II who presented to [facility] emergency room complaining of recurrent N/V/D. Patient stated that his symptoms started in late April 2025 and have been intermittent since
that time. He had been hospitalized for short stays here and at [facility] with temporary improvement in his symptoms. He reported N/V/D with at times bowel movements every hour. He denied any hematemesis, black or bloody stools. No fevers
or chills. Mild, crampy lower abdominal pain with diarrhea - but no other pain. No recent travel. No known sick contacts. Patient stated that his Mounjaro dose was increased from 2.5 to 5mg weekly at the beginning of April 2025. He also noted
that he had some difficulty adjusting to this medication even at lower doses - with similar, but milder, symptoms.
Intractable / Recurrent N/V/D
- Continue supportive care with IVFs, antiemetics, etc.
- Given duration / timing of intermittent symptoms - seems likely that his issues are due to higher dose of Mounjaro.
- Would not resume this medication - monitor for lasting improvement in symptoms.
- Already improving as of 06/24/25 -- no BM since 7:30 AM; if patient continues with improvement, then plan is for discharge tomorrow 06/25/25
- C. diff is negative
Permanent Atrial Fibrillation
- Stable. Continue carvedilol. Continue Xarelto.
DM-II
- Hold metformin acutely. Continue basal insulin and cover with SSI as needed.
- Reduced home Insulin by half given possible unreliable oral intake
- Would remain off of Mounjaro as noted above.
Benign Hypertension
- Hold amlodipine acutely. Continue Olmesartan or equivalent.
- Continue Carvedilol.
Hyperlipidemia
- Continue Ezetimibe
BPH
History of Urinary Retention during recent 2024 hospitalization
- Continue tamsulosin. Bladder scan protocol.
Morbid Obesity due to excess calories
- Affects all aspects of care.
- Would remain off of Mounjaro as noted above.
- Encourage healthy diet and increased activity with goal of weight reduction.
Abdominal Aortic Aneurysm
History of Cataract Surgery
DVT Prophylaxis: On Xarelto
Code Status: Full Code
Anticipated Discharge: Within 24 hours
Subjective/Interval History
-
Date of Service: June 24, 2025
Patient was seen and examined. His diarrhea has resolved since this morning. No other new symptoms or complaints.
Objective Data
-
Labs:
Laboratory Results
06/24/25
06:12
WBC Pending
Hgb Pending
Hct Pending
Plt Count Pending
Sodium 139
Potassium 3.4 L
Chloride 108 H
Carbon Dioxide 21 L
BUN 27 H
Creatinine 0.9
Glucose 126 H
Calcium 8.1 L
Vital Signs:
Vital Signs
Temp Pulse Resp BP Pulse Ox
98.9 F 80 19 104/57 93
06/23/25 17:21 06/24/25 04:15 06/24/25 04:15 06/24/25 05:00 06/24/25 04:45
[2025-06-24 07:35] LABS: Hematocrit 37.2 % (39.0-52.0); Hemoglobin 12.2 g/dL (13.0-18.0); Mean Corp Hgb Conc. 32.8 g/dL (33.0-37.0); Mean Corpuscular Volume 84.7 fL (80.0-94.0); Red Cell Dist. Width 16.1 % (11.5-14.5)
[2025-06-24] MEDS: SPIRIVA RESPIMAT 2.5 MCG 1 PUFF INH (08:19)
[2025-06-24 08:37] LABS: Albumin 3.4 g/dl (3.5-5.0)
--- NOTE | 2025-06-24 08:48 | EDCM ---
CM reviewed chart and met with pt bedside in ED. Pt lives with his friend Arlette in third floor condo, [address]
Independent in ADLs, personal care and ambulation at baseline, uses cane when he leaves the home. Only other DME is CPAP.
Was discharged with dunlap 05/30, dunlap has been removed, being followed by Dr Warren in Urology
ADAM reviewed and signed.
Confirms prescription coverage.
Had [facility] after last admission but has been discharged, no hx SNF
PCP: Nicole Plata
Pharmacy: [facility]
Anticipate discharge home, CM will continue to follow for all discharge planning needs.
[2025-06-24 09:15] LABS: Glucose - Point of Care 130 mg/dl (70-99)
[2025-06-24] MEDS: COZAAR 100 MG PO (09:19)
[2025-06-24] MEDS: COREG 25 MG PO ×2 (09:20→20:50)
[2025-06-24] MEDS: ZETIA 10 MG PO (09:20)
[2025-06-24] MEDS: LANTUS 0.12 UNITS SC (09:20)
[2025-06-24] MEDS: FLOMAX 0.4 MG PO (09:21)
[2025-06-24] MEDS: NOVOLOG FLEXPEN-LOW RESISTANCE SC ×3 (09:22→17:21)
--- NOTE | 2025-06-24 09:50 | EDRN ---
Pt moved to room #16 at 9:50 in stretcher and this RN received report from Nellie at this time.
[2025-06-24 10:05] LABS: Platelet Count 190 10^3/uL (130-400)
--- NOTE | 2025-06-24 12:56 | EDRN ---
Per Dr. Antunez pt will be discharged home soon. Awaiting paperwork at this time.
[2025-06-24 13:04] LABS: Glucose - Point of Care 131 mg/dl (70-99)
--- NOTE | 2025-06-24 13:23 | EDRN ---
Pt is discharged and will leave when finishes his lunch.
[2025-06-24 17:20] LABS: Glucose - Point of Care 129 mg/dl (70-99)
[2025-06-24] MEDS: XARELTO 20 MG PO (17:22)
[2025-06-24] MEDS: KCL 40 MEQ PO (18:28)
--- NOTE | 2025-06-24 19:27 | PTCARENOTE ---
Patient arrived to unit around 1630 this shift. He was able to ambulate from stretcher to bed using his own single point cane. Patient reports no pain. VSS. Dinner ordered. All needs met at this time. Plan of care ongoing.
[2025-06-24 21:26] LABS: Glucose - Point of Care 138 mg/dl (70-99)
[2025-06-24] MEDS: LANTUS 0.08 UNITS SC (21:38)
[2025-06-25] MEDS: LR 1000 IV (03:39)
[2025-06-25 04:00] VITALS: BMI 37.8
[2025-06-25 06:21] LABS: Hematocrit 34.5 % (39.0-52.0); Hemoglobin 11.2 g/dL (13.0-18.0); Mean Corp Hgb Conc. 32.5 g/dL (33.0-37.0); Mean Corpuscular Volume 87.1 fL (80.0-94.0); Platelet Count 136 10^3/uL (130-400); Red Cell Dist. Width 16.0 % (11.5-14.5)
[2025-06-25 07:00] VITALS: BP 128/63
[2025-06-25 07:02] LABS: Blood Urea Nitrogen 12 mg/dl (9-20); Calcium 7.9 mg/dl (8.4-10.2); Carbon Dioxide 25 mmol/L (22-30); Chloride 107 mmol/L (98-107); Estimated Creatinine Clearance 120 ml/min; Glucose 117 mg/dl (70-99); Magnesium 1.6 mg/dl (1.6-2.3); Potassium 3.5 mmol/L (3.5-5.1); Sodium 136 mmol/L (135-145); eGFR > 60.00
--- NOTE | 2025-06-25 07:12 | W.PN.HOSP.TC ---
Today's Communication/Plan
-
Discharge today
Assessment / Plan
Assessment / Plan
Physical Exam
General: Not in acute distress
HEENT: Moist mucous membranes
Respiratory: Clear to Auscultation Bilaterally
Cardiac: S1/S2 and Irregular Rhythm
GI: Other (Obese, not tender, positive bowel sounds)
Musculoskeletal: No Cyanosis, No Edema and Other (Chronic venous stasis pigment changes.)
Neuro: AAO x 3
Assessment/Plan
69 y/o male with past medical history significant for A-Fib, hypertension and DM-II who presented to [facility] emergency room complaining of recurrent N/V/D. Patient stated that his symptoms started in late April 2025 and have been intermittent since
that time. He had been hospitalized for short stays here and at [facility] with temporary improvement in his symptoms. He reported N/V/D with at times bowel movements every hour. He denied any hematemesis, black or bloody stools. No fevers
or chills. Mild, crampy lower abdominal pain with diarrhea - but no other pain. No recent travel. No known sick contacts. Patient stated that his Mounjaro dose was increased from 2.5 to 5mg weekly at the beginning of April 2025. He also noted
that he had some difficulty adjusting to this medication even at lower doses - with similar, but milder, symptoms.
Intractable / Recurrent N/V/D - IMPROVED
- Continue supportive care with IVFs, antiemetics, etc.
- Given duration / timing of intermittent symptoms - seems likely that his issues are due to higher dose of Mounjaro.
- Would not resume this medication - monitor for lasting improvement in symptoms.
- Already improving as of 06/24/25 -- no BM since 7:30 AM on 06/25/25
- C. diff is negative
Permanent Atrial Fibrillation
- Stable. Continue carvedilol. Continue Xarelto.
DM-II
- Hold metformin acutely until BMP rechecked outpatient. Continue basal insulin and cover with SSI as needed.
- Reduced home Insulin by half given possible unreliable oral intake
- Would remain off of Mounjaro as noted above.
Benign Hypertension
- Hold amlodipine acutely. Continue Olmesartan or equivalent.
- Continue Carvedilol.
Hyperlipidemia
- Continue Ezetimibe
BPH
History of Urinary Retention during recent 2024 hospitalization
- Continue tamsulosin. Bladder scan protocol.
Morbid Obesity due to excess calories
- Affects all aspects of care.
- Would remain off of Mounjaro as noted above.
- Encourage healthy diet and increased activity with goal of weight reduction.
Abdominal Aortic Aneurysm
History of Cataract Surgery
DVT Prophylaxis: On Xarelto
Code Status: Full Code
More than 30 minutes spent in discharge including
Final examination of the patient
Summarizing hospital stay
Instructions for continuing care to all relevant caregivers
Preparation of discharge records, prescriptions, and referral forms
Total time spent (in minutes): 36
Anticipated Discharge: Today
Subjective/Interval History
-
Date of Service: June 25, 2025
Patient was seen and examined. He denied having any diarrhea, abdominal pain or vomiting. He feels ready to go home today.
Objective Data
-
Labs:
Laboratory Results
06/25/25
05:47
WBC 6.1
Hgb 11.2 L
Hct 34.5 L
Plt Count 136 D
Sodium 136
Potassium 3.5
Chloride 107
Carbon Dioxide 25
BUN 12
Creatinine 0.8
Glucose 117 H
Calcium 7.9 L
Vital Signs:
Vital Signs
Temp Pulse Resp BP Pulse Ox
97.7 F 87 16 98/52 95
06/24/25 23:00 06/24/25 23:00 06/24/25 23:00 06/24/25 23:00 06/24/25 23:00
I&O
06/24/25 06/25/25 06/26/25
05:59 06:59 06:59
Intake Total 720 / 720
Balance 720 / 720
[2025-06-25] MEDS: SPIRIVA RESPIMAT 2.5 MCG 1 PUFF INH (07:54)
[2025-06-25 07:56] LABS: Albumin 3.0 g/dl (3.5-5.0)
[2025-06-25 08:40] LABS: Glucose - Point of Care 152 mg/dl (70-99)
[2025-06-25] MEDS: ZETIA 10 MG PO (09:38)
[2025-06-25] MEDS: COZAAR 100 MG PO (09:38)
[2025-06-25] MEDS: FLOMAX 0.4 MG PO (09:38)
[2025-06-25] MEDS: COREG 25 MG PO (09:38)
[2025-06-25] MEDS: LANTUS 0.08 UNITS SC (09:39)
[2025-06-25] MEDS: MAGNESIUM SULFATE 102 GRAMS IV (09:39)
[2025-06-25] MEDS: NOVOLOG FLEXPEN-LOW RESISTANCE 1 UNITS SC (10:23)
[2025-06-25] MEDS: KCL 40 MEQ PO (10:27)
[2025-06-25] MEDS: NOVOLOG FLEXPEN-LOW RESISTANCE SC (11:33)
[2025-06-25 11:34] LABS: Glucose - Point of Care 129 mg/dl (70-99)
--- NOTE | 2025-06-25 14:44 | CM ---
MD entered order for discharge.
Spoke with patient he said he was ready for discharge . Arlette will drive him home .'
Offered VN he declined need.
PLAN Home no needs
[2025-06-25 15:06] VITALS: BP 122/62
== END 2025-06-25 15:30 | disposition home or self-care (01) ==
LOC: 3 WEST ACU 04:53
PROVIDERS: Emergency Medicine; ADMITTING PHYSICIAN Hospitalist; ATTENDING PHYSICIAN Hospitalist; EMERGENCY PHYSICIAN Student in an Organized Health Care Education/Training Program; FAMILY PHYSICIAN Nurse Practitioner Family
DX: R11.2 Nausea with vomiting, unspecified (principal); R10.9 Unspecified abdominal pain; E11.9 Type 2 diabetes mellitus without complications; R19.7 Diarrhea, unspecified; I48.21 Permanent atrial fibrillation; E78.00 Pure hypercholesterolemia, unspecified; E66.01 Morbid (severe) obesity due to excess calories; K80.20 Calculus of gallbladder without cholecystitis without obstruction; K57.30 Diverticulosis of large intestine without perforation or abscess without bleeding; K86.1 Other chronic pancreatitis; N40.0 Benign prostatic hyperplasia without lower urinary tract symptoms; I70.90 Unspecified atherosclerosis; M19.90 Unspecified osteoarthritis, unspecified site; M85.80 Other specified disorders of bone density and structure, unspecified site; M41.9 Scoliosis, unspecified; I25.10 Atherosclerotic heart disease of native coronary artery without angina pectoris; N20.0 Calculus of kidney; I10 Essential (primary) hypertension; I71.40 Abdominal aortic aneurysm, without rupture, unspecified; E86.0 Dehydration; Z86.79 Personal history of other diseases of the circulatory system; Z87.891 Personal history of nicotine dependence; Z79.85 Long-term (current) use of injectable non-insulin antidiabetic drugs; Z79.01 Long term (current) use of anticoagulants; Z98.49 Cataract extraction status, unspecified eye; Z68.37 Body mass index [BMI] 37.0-37.9, adult; Z79.84 Long term (current) use of oral hypoglycemic drugs; Z79.4 Long term (current) use of insulin
CPT/HCPCS: 74177; 80048; 80053; 82040; 82962; 83690; 83735; 84443; 84484; 85025; 85027; 87045; 87046; 87324; 87427; 87449; 94640; 96361; 96374; 97116; 97162; 99285; G0378; Q9967

== ENCOUNTER → 2025-07-27 07:41 | Outpatient (REF) | payer MEDICARE, SELFPAY | LOC: RAD 07:41 | PROVIDERS: ATTENDING PHYSICIAN Surgery Vascular Surgery; FAMILY PHYSICIAN Nurse Practitioner Family | DX: I71.40 Abdominal aortic aneurysm, without rupture, unspecified (principal) | CPT/HCPCS: 76770 ==